=== PATIENT | male | born 1960 | race Caucasian/White ===

== ENCOUNTER 2018-05-13 07:29 | Day surgery (SDC) | payer BC ==
[2018-05-11 10:53] VITALS: BMI 25.1
[~2018-05-13 07:29] MED LIST: DEXAMETHASONE SOD PHOSPHATE 10 MG/ML 1 ML VIAL IV ONE; HYDROmorphone 1 MG/ML 1 ML SYRINGE IVP PRN; LACTATED RINGERS 1,000 ML IV SCH; LIDOCAINE 1% 20 ML VIAL (10MG/ML) FOR IV START INTRADERMA PRN; ONDANSETRON 4 MG/2 ML VIAL IVP ONE; SCOPOLAMINE 1.5MG/72HR PATCH TRANSDERM ONE
[2018-05-13 07:45] VITALS: TEMP 97.7
[2018-05-13] MEDS ORDERED: LACTATED RINGERS 1,000 ML IV ONE (07:45)
[2018-05-13 07:51] LABS: Glucose,Whole Blood 130 mg/dL (75-99)
[2018-05-13] MEDS ORDERED: PROPOFOL 10 MG/ML 20 ML VIAL IV ONE (08:15)
[2018-05-13 09:14] VITALS: BP 125/74; PULSE 84; RESP 18
--- NOTE | 2018-05-13 09:25 | P.PCN ---
Date of Procedure: 05/13/18 Description of Procedure: BRIEF HISTORY: Patient is a 58-year-old pleasant male patient with a medical history significant for hypertension, dyslipidemia and diabetes mellitus who is scheduled for an elective colonoscopy as a part of his first screening. The patient has not had a colonoscopy in the past. He does have a family history of colon cancer in his father was diagnosed at the age of approximately 60 years old. No diarrhea, change in bowel habits, constipation, hematochezia, melena or other bowel issues. PROCEDURE PERFORMED: Colonoscopy. PREOPERATIVE DIAGNOSIS: Screening for colon cancer (no family history of colon cancer). ESTIMATED BLOOD LOSS: Minimal. IV sedation per Anesthesia. PROCEDURE: After informed consent was obtained, the patient, was brought into the endoscopy unit. IV sedation was administered by Anesthesia under continuous monitoring. Digital rectal examination was normal. Initially the Olympus CF- 190 flexible video colonoscope was then inserted in the rectum, gradually advanced into the cecum without any difficulty. The terminal ileum was intubated and photographed. Careful examination was performed as the scope was gradually being withdrawn. Ileocecal valve and the appendiceal orifice were visualized and appeared normal. Prep was good. Mucosa of the cecum, ascending colon, transverse colon, descending colon, sigmoid colon, and rectum appeared normal. The patient had numerous small and large mouth diverticula in the sigmoid and descending colon. The patient also had a somewhat tortuous and fixed colon. Retroflexion was performed in the rectum and no lesions were seen , mild internal hemorrhoids noted on retroflexion. The patient tolerated the procedure well. IMPRESSION: Normal-appearing colon from rectum to cecum with only diverticulosis and internal hemorrhoids noted. RECOMMENDATIONS: Findings of this examination were discussed with the patient. Okay to resume diet. Would recommend repeat colonoscopy in 5 years given family history.[].
== END 2018-05-13 09:41 | disposition home or self-care (01) ==
LOC: ORWHC2ENDO 07:29
PROVIDERS: ATTEND Internal Medicine
DX: Z12.11 Encounter for screening for malignant neoplasm of colon (principal); K57.30 Diverticulosis of large intestine without perforation or abscess without bleeding; K64.8 Other hemorrhoids; Q43.8 Other specified congenital malformations of intestine; Z80.0 Family history of malignant neoplasm of digestive organs; I10 Essential (primary) hypertension; E11.9 Type 2 diabetes mellitus without complications; M54.5 Low back pain; F41.9 Anxiety disorder, unspecified; F17.210 Nicotine dependence, cigarettes, uncomplicated; Z79.84 Long term (current) use of oral hypoglycemic drugs; Z79.899 Other long term (current) drug therapy; Z79.891 Long term (current) use of opiate analgesic
CPT/HCPCS: J2704; G0105; 45378

== ENCOUNTER → 2018-05-20 | Outpatient (CLI) | payer BC ==
--- NOTE | 2018-05-20 18:28 | MR ---
EXAMINATION TYPE: MR lumbar spine wo con DATE OF EXAM: 05/20/2018 COMPARISON: Plane, 04/28/2018 HISTORY: Rt hip pain into rt leg TECHNIQUE: Multiplanar, multisequence images of the lumbar spine were acquired. Exam was aborted due to patient claustrophobia. Sagittal T2-weighted images show loss of disc height and signal especially at L4-5 and L5-S1. Posterior extension of endplate disc complex at L4-5 [facility] with facet arthropathy is thought to cause spinal stenosis, some redundancy of the nerve roots ar e present. Lateral extension endplate disc complexes at L4-5 and L5-S1 cause foraminal encroachment. The conus is unremarkable as seen. Possible synovial cyst at the arthropathy of the facets at L4-5 ca using mass effect locally. IMPRESSION: Degenerative disc disease, spinal stenosis, facet arthropathy. Patient to reschedule exam.
== END ==
LOC: RADMRIMAIN 06:34
PROVIDERS: ATTEND Family Medicine
DX: M51.36 Other intervertebral disc degeneration, lumbar region (principal); M48.061 Spinal stenosis, lumbar region without neurogenic claudication; M46.96 Unspecified inflammatory spondylopathy, lumbar region
CPT/HCPCS: 72148

== ENCOUNTER 2018-05-24 15:02 | Inpatient (IN) | payer BC ==
[2018-05-24] MEDS ORDERED: ASPIRIN 81 MG PO STA (15:45)
[2018-05-24] MEDS ORDERED: SODIUM CHLORIDE 0.9% 1,000 ML IV STA (15:45)
[2018-05-24] MEDS ORDERED: NITROGLYCERIN SL TABS 0.4 MG TAB SUBLINGUAL STA ×3 (15:45)
--- NOTE | 2018-05-24 15:53 | ED ---
General Adult HPI - General Chief complaint: Chest Pain Stated complaint: Chest pain Time Seen by Provider: 05/24/18 15:32 Source: patient, family, RN notes reviewed Mode of arrival: wheelchair Limitations: no limitations - History of Present Illness Initial comments: Patient is a pleasant 58-year-old male presenting to the emergency Department with complaints of chest discomfort. Onset of symptoms was earlier today. Discomfort has been waxing and waning. Patient may have had some minimal symptoms past day or 2. Discomfort feels like pressure on his chest without radiation. Discomfort is currently 8/10. Patient does have some associated dyspnea and lightheadedness. No associated nausea or diaphoresis. No history of similar symptoms previously. Patient did see his primary care physician prior to arrival and was directed to come to the emergency department - Related Data Home Medications Medication Instructions Recorded Confirmed Atorvastatin [Lipitor] 10 mg PO AC-BRKFST 05/11/18 05/24/18 metFORMIN HCL 500 mg PO AC-LUNCH 05/11/18 05/24/18 Losartan-Hctz 50-12.5 mg [Hyzaar 1 tab PO AC-SUPPER 05/24/18 05/24/18 50-12.5] Allergies Allergy/AdvReac Type Severity Reaction Status Date / Time No Known Allergies Allergy Verified 05/24/18 15:56 Review of Systems ROS Statement: Those systems with pertinent positive or pertinent negative responses have been documented in the HPI. ROS Other: All systems not noted in ROS Statement are negative. Constitutional: Denies: fever Eyes: Denies: eye pain ENT: Denies: ear pain Respiratory: Reports: dyspnea. Denies: cough Cardiovascular: Reports: chest pain Endocrine: Denies: fatigue Gastrointestinal: Denies: abdominal pain Genitourinary: Denies: dysuria Musculoskeletal: Denies: back pain Skin: Denies: rash Neurological: Denies: weakness Past Medical History Past Medical History: Diabetes Mellitus, Hyperlipidemia, Hypertension History of Any Multi-Drug Resistant Organisms: None Reported Past Surgical History: Heart Catheterization Past Anesthesia/Blood Transfusion Reactions: No Reported Reaction Past Psychological History: No Psychological Hx Reported Smoking Status: Current every day smoker Past Alcohol Use History: Daily Past Drug Use History: None Reported - Past Family History Mother Family Medical History: No Reported History General Exam Limitations: no limitations General appearance: alert, in no apparent distress Head exam: Present: atraumatic Eye exam: Present: normal appearance, PERRL ENT exam: Present: normal oropharynx Neck exam: Present: normal inspection Respiratory exam: Present: normal lung sounds bilaterally. Absent: chest wall tenderness Cardiovascular Exam: Present: regular rate, normal rhythm Expanded Peripheral pulses: 2+: Radial (R), Radial (L), Posterior Tibialis (R), Posterior Tibialis (L) GI/Abdominal exam: Present: soft. Absent: tenderness Extremities exam: Present: normal inspection. Absent: pedal edema, calf tenderness Back exam: Present: normal inspection Neurological exam: Present: alert Psychiatric exam: Present: normal affect, normal mood Skin exam: Present: normal color. Absent: rash Course Vital Signs 05/24/18 05/24/18 05/24/18 15:09 15:50 16:01 Temperature 98.2 F Pulse Rate 92 93 88 Respiratory 18 18 16 Rate Blood Pressure 148/82 135/73 142/67 O2 Sat by Pulse 99 96 98 Oximetry 05/24/18 05/24/18 05/24/18 16:06 16:12 16:34 Temperature Pulse Rate 86 88 85 Respiratory 15 15 16 Rate Blood Pressure 114/57 117/55 123/62 O2 Sat by Pulse 94 L 96 98 Oximetry EKG Findings - EKG Comments: EKG Findings:: Normal sinus rhythm at 87. ND 162. QRS 112. QT 372. QTC 447. Normal axis. Normal QRS. No acute ST change. Medical Decision Making - Medical Decision Making Patient reevaluated and resting comfortably in bed. Symptoms near resolved following nitroglycerin. Patient and family updated. Patient does admit to having some dark stools over the past week or 2. Patient states this occurred following having routine colonoscopy that was reported to him as no concerns. Case was discussed in detail with Dr. Mathis, who will admit his patient with GI consult. - Lab Data Result diagrams: 05/24/18 15:52 05/24/18 15:52 Lab Results 05/24/18 05/24/18 05/24/18 Range/Units 15:52 15:52 15:52 WBC 8.0 (3.8-10.6) k/uL RBC 2.33 L (4.30-5.90) m/uL Hgb 7.4 L D (13.0-17.5) gm/dL Hct 22.0 L (39.0-53.0) % MCV 94.3 (80.0-100.0) fL MCH 31.5 (25.0-35.0) pg MCHC 33.4 (31.0-37.0) g/dL RDW 15.6 H (11.5-15.5) % Plt Count 277 (150-450) k/uL Neutrophils % 71 % Lymphocytes % 20 % Monocytes % 5 % Eosinophils % 3 % Basophils % 1 % Neutrophils # 5.6 (1.3-7.7) k/uL Lymphocytes # 1.6 (1.0-4.8) k/uL Monocytes # 0.4 (0-1.0) k/uL Eosinophils # 0.2 (0-0.7) k/uL Basophils # 0.0 (0-0.2) k/uL PT (9.0-12.0) sec INR (<1.2) APTT (22.0-30.0) sec D-Dimer (<0.60) mg/L FEU Sodium 136 L (137-145) mmol/L Potassium 3.9 (3.5-5.1) mmol/L Chloride 104 (98-107) mmol/L Carbon Dioxide 26 (22-30) mmol/L Anion Gap 6 mmol/L BUN 18 (9-20) mg/dL Creatinine 0.86 (0.66-1.25) mg/dL Est GFR (CKD-EPI)AfAm >90 (>60 ml/min/1.73 sqM) Est GFR (CKD-EPI)NonAf >90 (>60 ml/min/1.73 sqM) Glucose 118 H (74-99) mg/dL Calcium 8.7 (8.4-10.2) mg/dL Magnesium 1.8 (1.6-2.3) mg/dL Total Bilirubin 0.2 (0.2-1.3) mg/dL AST 23 (17-59) U/L ALT 31 (21-72) U/L Alkaline Phosphatase 66 (38-126) U/L Total Creatine Kinase 136 (55-170) U/L CK-MB (CK-2) 2.3 (0.0-2.4) ng/mL CK-MB (CK-2) Rel Index 1.7 Troponin I <0.012 (0.000-0.034) ng/mL Total Protein 5.5 L (6.3-8.2) g/dL Albumin 3.2 L (3.5-5.0) g/dL 05/24/18 Range/Units 15:52 WBC (3.8-10.6) k/uL RBC (4.30-5.90) m/uL Hgb (13.0-17.5) gm/dL Hct (39.0-53.0) % MCV (80.0-100.0) fL MCH (25.0-35.0) pg MCHC (31.0-37.0) g/dL RDW (11.5-15.5) % Plt Count (150-450) k/uL Neutrophils % % Lymphocytes % % Monocytes % % Eosinophils % % Basophils % % Neutrophils # (1.3-7.7) k/uL Lymphocytes # (1.0-4.8) k/uL Monocytes # (0-1.0) k/uL Eosinophils # (0-0.7) k/uL Basophils # (0-0.2) k/uL PT 9.9 (9.0-12.0) sec INR 0.9 (<1.2) APTT 25.1 (22.0-30.0) sec D-Dimer 0.35 (<0.60) mg/L FEU Sodium (137-145) mmol/L Potassium (3.5-5.1) mmol/L Chloride (98-107) mmol/L Carbon Dioxide (22-30) mmol/L Anion Gap mmol/L BUN (9-20) mg/dL Creatinine (0.66-1.25) mg/dL Est GFR (CKD-EPI)AfAm (>60 ml/min/1.73 sqM) Est GFR (CKD-EPI)NonAf (>60 ml/min/1.73 sqM) Glucose (74-99) mg/dL Calcium (8.4-10.2) mg/dL Magnesium (1.6-2.3) mg/dL Total Bilirubin (0.2-1.3) mg/dL AST (17-59) U/L ALT (21-72) U/L Alkaline Phosphatase (38-126) U/L Total Creatine Kinase (55-170) U/L CK-MB (CK-2) (0.0-2.4) ng/mL CK-MB (CK-2) Rel Index Troponin I (0.000-0.034) ng/mL Total Protein (6.3-8.2) g/dL Albumin (3.5-5.0) g/dL - Radiology Data Radiology results: image reviewed (Chest x-ray shows no acute process) Disposition Clinical Impression: Chest pain Disposition: ADMITTED IP TO THIS HOSP Is patient prescribed a controlled substance at d/c from ED?: No Referrals: Tony Mathis MD [Primary Care Provider] - 1-2 days Decision Time: 17:54
[2018-05-24] MEDS ORDERED: NITROGLYCERIN OINT 1 INCH/GM PACKET TOPICAL STA (16:29)
[2018-05-24 16:32] LABS: Basophils % (A) 1 %; Eosinophils # (A) 0.2 k/uL (0-0.7); Eosinophils % (A) 3 %; Lymphocytes # (A) 1.6 k/uL (1.0-4.8); Lymphocytes % (A) 20 %; MCH 31.5 pg (25.0-35.0); MCHC 33.4 g/dL (31.0-37.0); MCV 94.3 fL (80.0-100.0); Mean Platelet Volume 7.4; Monocytes # (A) 0.4 k/uL (0-1.0); Monocytes % (A) 5 %; Neutrophils # (A) 5.6 k/uL (1.3-7.7); Neutrophils % (A) 71 %; Platelet Count 277 k/uL (150-450); RBC 2.33 m/uL (4.30-5.90); RDW 15.6 % (11.5-15.5)
[2018-05-24 16:33] LABS: ALT 31 U/L (21-72); AST 23 U/L (17-59); Albumin 3.2 g/dL (3.5-5.0); Alkaline Phosphatase 66 U/L (38-126); Anion Gap 6 mmol/L; Blood Urea Nitrogen 18 mg/dL (9-20); Calcium 8.7 mg/dL (8.4-10.2); Carbon Dioxide 26 mmol/L (22-30); Chloride 104 mmol/L (98-107); Glucose 118 mg/dL (74-99); HGB 7.4 gm/dL (13.0-17.5); Magnesium 1.8 mg/dL (1.6-2.3); Potassium 3.9 mmol/L (3.5-5.1); Sodium 136 mmol/L (137-145); Total Bilirubin 0.2 mg/dL (0.2-1.3); Total Protein 5.5 g/dL (6.3-8.2)
[2018-05-24 16:36] LABS: Creatine Kinase 136 U/L (55-170)
[2018-05-24 16:38] LABS: D-Dimer 0.35 mg/L FEU (<0.60); INR 0.9 (<1.2); Partial Thromboplastin Time 25.1 sec (22.0-30.0); Prothrombin Time 9.9 sec (9.0-12.0)
[2018-05-24 16:49] LABS: Creatine Kinase MB 2.3 ng/mL (0.0-2.4); Troponin I <0.012 ng/mL (0.000-0.034)
--- NOTE | 2018-05-24 17:28 | XR ---
EXAMINATION TYPE: XR chest 2V DATE OF EXAM: 05/24/2018 COMPARISON: July 19, 2014 HISTORY: Chest pain TECHNIQUE: Frontal and lateral views of the chest are obtained. FINDINGS: Heart and mediastinum are normal. Lungs are clear. Costophrenic angles are clear. There is no pleural effusion. There are chest leads. Bony thorax is intact. IMPRESSION: No active cardiopulmonary disease. Normal heart.
[2018-05-24] MEDS ORDERED: PANTOPRAZOLE 40 MG/10 ML VIAL IVP ONE (17:54)
[2018-05-24] MEDS ORDERED: NITROGLYCERIN SL TABS 0.4 MG TAB SUBLINGUAL PRN (17:55)
[2018-05-24] MEDS: PANTOPRAZOLE 40 MG/10 ML VIAL IVP SCH (22:16)
[2018-05-24 22:21] VITALS: BMI 26.5
[2018-05-24] MEDS: NITROGLYCERIN OINT 1 INCH/GM PACKET TOPICAL SCH (22:26)
[2018-05-24 22:35] LABS: Creatine Kinase 98 U/L (55-170)
[2018-05-24 22:49] LABS: Creatine Kinase MB 1.5 ng/mL (0.0-2.4); Troponin I <0.012 ng/mL (0.000-0.034)
[2018-05-25 03:44] LABS: Basophils % (A) 1 %; Eosinophils # (A) 0.2 k/uL (0-0.7); Eosinophils % (A) 4 %; HCT 21.1 % (39.0-53.0); HGB 7.1 gm/dL (13.0-17.5); Lymphocytes # (A) 1.4 k/uL (1.0-4.8); Lymphocytes % (A) 22 %; MCH 32.7 pg (25.0-35.0); MCHC 33.6 g/dL (31.0-37.0); MCV 97.2 fL (80.0-100.0); Macrocytosis Slight; Mean Platelet Volume 7.3; Monocytes # (A) 0.3 k/uL (0-1.0); Monocytes % (A) 5 %; Neutrophils # (A) 4.2 k/uL (1.3-7.7); Neutrophils % (A) 67 %; Platelet Count 274 k/uL (150-450); RBC 2.17 m/uL (4.30-5.90); RDW 15.6 % (11.5-15.5); WBC 6.3 k/uL (3.8-10.6)
[2018-05-25 03:56] LABS: Cholesterol 95 mg/dL (<200); HDL Cholesterol 29 mg/dL (40-60); LDL Cholesterol,Calculated 53 mg/dL (0-99); Triglycerides 66 mg/dL (<150)
[2018-05-25 04:24] LABS: Creatine Kinase 113 U/L (55-170)
[2018-05-25 04:37] LABS: Creatine Kinase MB 1.5 ng/mL (0.0-2.4); Troponin I <0.012 ng/mL (0.000-0.034)
[2018-05-25] MEDS: NITROGLYCERIN OINT 1 INCH/GM PACKET TOPICAL SCH ×5 (05:50→23:18)
[2018-05-25 06:25] LABS: Glucose,Whole Blood 141 mg/dL (75-99)
[2018-05-25] MEDS: PANTOPRAZOLE 40 MG/10 ML VIAL IVP SCH ×2 (08:44→20:59)
--- NOTE | 2018-05-25 11:28 | P.HPIM ---
History of Present Illness 58-year-old male presented emergency room with complaints of chest pain and black stools. Patient had a colonoscopy [address] Lozano. Patient states the day after colonoscopy developed black stools. States she developed chest pain this weekend. Patient has a history of diabetes type 2 hyperlipidemia hypertension oh called blood positive hemoglobin 7.4 initially now 7. Review of Systems Constitutional: Reports fatigue Cardiovascular: Reports chest pain Gastrointestinal: Reports hematochezia Past Medical History Past Medical History: Diabetes Mellitus, Hyperlipidemia, Hypertension History of Any Multi-Drug Resistant Organisms: None Reported Past Surgical History: Heart Catheterization Past Anesthesia/Blood Transfusion Reactions: No Reported Reaction Past Psychological History: No Psychological Hx Reported Smoking Status: Current every day smoker Past Alcohol Use History: Daily Additional Past Alcohol Use History / Comment(s): has smoked for about 45 years ; less than 1ppd Past Drug Use History: None Reported - Past Family History Mother Family Medical History: No Reported History Additional Family Medical History / Comment(s): "either a stroke or heart attack " Father Family Medical History: Cancer Additional Family Medical History / Comment(s): colon cancer Medications and Allergies Home Medications Medication Instructions Recorded Confirmed Type Atorvastatin [Lipitor] 10 mg PO AC-BRKFST 05/11/18 05/24/18 History metFORMIN HCL 500 mg PO AC-LUNCH 05/11/18 05/24/18 History Losartan-Hctz 50-12.5 mg [Hyzaar 1 tab PO AC-SUPPER 05/24/18 05/24/18 History 50-12.5] Allergies Allergy/AdvReac Type Severity Reaction Status Date / Time No Known Allergies Allergy Verified 05/24/18 15:56 Physical Exam Vitals: Vital Signs Temp Pulse Pulse Resp BP BP Pulse Ox 05/25/18 08:00 97.9 F 77 18 135/82 95 05/25/18 03:02 74 16 137/69 97 05/25/18 03:01 80 16 05/24/18 22:33 80 16 05/24/18 22:17 84 16 136/79 98 05/24/18 21:05 78 18 139/62 96 05/24/18 20:30 82 16 96 05/24/18 20:08 97.8 F 80 18 136/79 97 05/24/18 18:15 87 18 157/71 98 12/10/18 17:15 84 16 141/65 99 05/24/18 16:34 85 16 123/62 98 05/24/18 16:12 88 15 117/55 96 05/24/18 16:06 86 15 114/57 94 L 05/24/18 16:01 88 16 142/67 98 05/24/18 15:50 93 18 135/73 96 05/24/18 15:09 98.2 F 92 18 148/82 99 Intake and Output 05/24/18 05/25/18 05/25/18 22:59 06:59 14:59 Intake Total 0 480 Balance 0 480 Intake: Oral 0 480 Other: Voiding Method Toilet Toilet # Voids 2 Weight 83.915 kg - Constitutional General appearance: average body habitus - EENT Eyes: PERRLA - Neck Neck: normal ROM - Respiratory Respiratory: bilateral: CTA - Cardiovascular Rhythm: regular - Gastrointestinal General gastrointestinal: normal bowel sounds, soft - Integumentary Integumentary: normal - Neurologic Neurologic: CNII-XII intact - Psychiatric Psychiatric: A&O x's 3, appropriate affect, intact judgment & insight Results CBC & Chem 7: 05/25/18 03:32 05/24/18 15:52 Labs: Abnormal Lab Results - Last 24 Hours (Table) 05/24/18 05/24/18 05/25/18 Range/Units 15:52 15:52 03:32 RBC 2.33 L 2.17 L (4.30-5.90) m/uL Hgb 7.4 L D 7.1 L (13.0-17.5) gm/dL Hct 22.0 L 21.1 L (39.0-53.0) % RDW 15.6 H 15.6 H (11.5-15.5) % Sodium 136 L (137-145) mmol/L Glucose 118 H (74-99) mg/dL POC Glucose (mg/dL) (75-99) mg/dL Total Protein 5.5 L (6.3-8.2) g/dL Albumin 3.2 L (3.5-5.0) g/dL HDL Cholesterol (40-60) mg/dL 05/25/18 05/25/18 Range/Units 03:32 06:20 RBC (4.30-5.90) m/uL Hgb (13.0-17.5) gm/dL Hct (39.0-53.0) % RDW (11.5-15.5) % Sodium (137-145) mmol/L Glucose (74-99) mg/dL POC Glucose (mg/dL) 141 H (75-99) mg/dL Total Protein (6.3-8.2) g/dL Albumin (3.5-5.0) g/dL HDL Cholesterol 29 L (40-60) mg/dL Chest x-ray: report reviewed Assessment and Plan Plan: Assessment Chest pain troponin negative 3 GI bleed History of colonoscopy 2 weeks ago Diabetes type 2 Hypertension Hyperlipidemia Anemia secondary to blood loss Nicotine use Plan Cardiology consultation Gastroenterology consultation Dr. Lozano
--- NOTE | 2018-05-25 12:44 | ECHOF ---
Referral Reason:chest pain MEASUREMENTS -------- HEIGHT: 177.8 cm WEIGHT: 83.9 kg BP: RVIDd: 2.5 cm (< 3.3) IVSd: 1.0 cm (0.6 - 1.1) LVIDd: 5.2 cm (3.9 - 5.3) LVPWd: 1.0 cm (0.6 - 1.1) IVSs: 1.3 cm LVIDs: 3.4 cm LVPWs: 1.3 cm LAESV Index (A-L): 19.24 ml/m Ao Diam: 3.1 cm (2.0 - 3.7) AV Cusp: 2.0 cm (1.5 - 2.6) LA Diam: 3.9 cm (2.7 - 3.8) MV E Stephen: 1.06 m/s MV DecT: 259 ms MV A Stephen: 1.00 m/s MV E/A Ratio: 1.07 RAP: 5.00 mmHg RVSP: 30.89 mmHg FINDINGS -------- Sinus rhythm. This was a technically adequate study. The left ventricular size is normal. Left ventricular wall thickness is normal. Overall left vent ricular systolic function is normal with, an EF between 55 - 60 %. The right ventricle is normal in size and function. Normal LA size by volume 22+/-6 ml/m2. The right atrium is normal in size. The aortic valve is trileaflet, and appears structurally normal. No aortic stenosis or regurgitation. The mitral valve is normal. Mild mitral regurgitation is present. Mild tricuspid regurgitation present. Right ventricular systolic pressure is normal at < 35 mmHg. The right ventricular systolic pressure, as measured by Doppler, is 30.89mmHg. Trace/mild (physiologic) pulmonic regurgitation. The aortic root size is normal. Normal inferior vena cava with normal inspiratory collapse consistent with estimated right atrial pre ssure of 5 mmHg. There is no pericardial effusion. CONCLUSIONS -------- 1. Sinus rhythm. 2. This was a technically adequate study. 3. The left ventricular size is normal. 4. Left ventricular wall thickness is normal. 5. Overall left ventricular systolic function is normal with, an EF between 55 - 60 %. 6. Normal LA size by volume 22+/-6 ml/m2. 7. The aortic valve is trileaflet, and appears structurally normal. No aortic stenosis or regurgitati on. 8. Mild mitral regurgitation is present. 9. Mild tricuspid regurgitation present. 10. Right ventricular systolic pressure is normal at < 35 mmHg. 11. Trace/mild (physiologic) pulmonic regurgitation. 12. The aortic root size is normal. 13. There is no pericardial effusion. FINAL CANOE INSPECTOR: Erick Porras RDCS
[2018-05-25] MEDS: metFORMIN 500 MG TAB PO SCH (13:03)
--- NOTE | 2018-05-25 13:41 | P.CONS ---
History of Present Illness - Reason for Consult Consult date: 05/25/18 Anemia and GI bleed Requesting physician: Tony Mathis - Chief Complaint Melena and lightheadedness - History of Present Illness 58-year-old gentleman admitted with acute symptomatic anemia. Patient underwent outpatient colonoscopy screening May 13 with findings of colonic diverticulosis and internal hemorrhoids. He has a past medical history of sciatic pain and takes an Aleve daily as well as 400 mg of Motrin at night. Over the last month he has been experiencing some black or darker looking bowel movements. Over the weekend he developed increased lightheadedness dizziness weakness more sleepy fatigue. He isn't passing on an average one bowel movement a day black-colored in nature without abdominal pain or emesis fever chills or weight loss. No history of GI bleed peptic ulcer disease or EGD. Hemoglobin one month ago was 16.4. Admission hemoglobin 7.4 presently 7.1 is scheduled to receive a blood transfusion today. Last black bowel movement was yesterday. MCV 97. Platelet 274. INR 0.9. BUN 18. Creatinine 0.8. FOBT positive. Denies excessive usage of NSAIDs or aspirin. No alcohol. CT abdomen and pelvis 04/28/2018 reported moderate sigmoid diverticulosis no sign of acute abdomen and pelvis. Review of Systems Constitutional: Denies fever, chills, sweats, weight gain, or loss. Admitted with lightheadedness and dizziness. Fatigue. HEENT: Negative for migraines, blurred vision or loss, earaches, drainage, tinnitus, oral mucosal lesions, dysphagia, or odynophagia. Cardiac: Negative for chest pain, arrhythmias, or palpitation. Respiratory: Negative for shortness of breath, hemoptysis, cough, or sputum production. Gastrointestinal: See HPI for pertinent findings. Genitourinary: Negative for hematuria, urgency, frequency, polyuria, dysuria, or penile discharge. Musculoskeletal: Negative for muscle aches, swelling, arthritis, and arthralgias. Neurologic: Negative for stroke or TIA. Endocrine: Negative for thyroid problems. Skin: Negative for rash or itching. Psychiatric: Negative history for depression and anxiety Past Medical History Past Medical History: Diabetes Mellitus, Hyperlipidemia, Hypertension History of Any Multi-Drug Resistant Organisms: None Reported Past Surgical History: Heart Catheterization Past Anesthesia/Blood Transfusion Reactions: No Reported Reaction Past Psychological History: No Psychological Hx Reported Smoking Status: Current every day smoker Past Alcohol Use History: Daily Additional Past Alcohol Use History / Comment(s): has smoked for about 45 years ; less than 1ppd Past Drug Use History: None Reported - Past Family History Mother Family Medical History: No Reported History Additional Family Medical History / Comment(s): "either a stroke or heart attack " Father Family Medical History: Cancer Additional Family Medical History / Comment(s): colon cancer Medications and Allergies Home Medications Medication Instructions Recorded Confirmed Type Atorvastatin [Lipitor] 10 mg PO AC-BRKFST 05/11/18 05/24/18 History metFORMIN HCL 500 mg PO AC-LUNCH 05/11/18 05/24/18 History Losartan-Hctz 50-12.5 mg [Hyzaar 1 tab PO AC-SUPPER 05/24/18 05/24/18 History 50-12.5] Allergies Allergy/AdvReac Type Severity Reaction Status Date / Time No Known Allergies Allergy Verified 05/24/18 15:56 Physical Exam Vitals: Vital Signs Temp Pulse Pulse Resp BP BP Pulse Ox 05/25/18 08:00 97.9 F 77 18 135/82 95 05/25/18 03:02 74 16 137/69 97 05/25/18 03:01 80 16 05/24/18 22:33 80 16 05/24/18 22:17 84 16 136/79 98 05/24/18 21:05 78 18 139/62 96 05/24/18 20:30 82 16 96 05/24/18 20:08 97.8 F 80 18 136/79 97 05/24/18 18:15 87 18 157/71 98 05/24/18 17:15 84 16 141/65 99 05/24/18 16:34 85 16 123/62 98 05/24/18 16:12 88 15 117/55 96 05/24/18 16:06 86 15 114/57 94 L 05/24/18 16:01 88 16 142/67 98 05/24/18 15:50 93 18 135/73 96 05/24/18 15:09 98.2 F 92 18 148/82 99 Intake and Output 05/24/18 05/25/18 05/25/18 22:59 06:59 14:59 Intake Total 0 480 Balance 0 480 Intake: Oral 0 480 Other: Voiding Method Toilet Toilet # Voids 2 Weight 83.915 kg General appearance: The patient is alert, oriented, in no acute distress. HET: Head is normocephalic and atraumatic. Pupils are equal and reactive. Oropharynx is clear without lesions. Neck: Supple without lymphadenopathy. Trachea midline. Heart: S1 S2. Regular rate and rhythm. Lungs: No crackles or wheezes are heard. Abdomen: Soft, nontender, nondistended with bowel sounds. No peritoneal signs. No palpable organomegaly or masses. Extremities: Normal skin color and turgor. No cyanosis, rash, ulceration, clubbing, or edema. Radial and pedal pulses are 2/4 bilaterally. Neurological: No focal deficits. Strength and sensation are grossly intact. Results CBC & Chem 7: 05/25/18 03:32 05/24/18 15:52 Labs: Abnormal Lab Results - Last 24 Hours (Table) 05/24/18 05/24/18 05/25/18 Range/Units 15:52 15:52 03:32 RBC 2.33 L 2.17 L (4.30-5.90) m/uL Hgb 7.4 L D 7.1 L (13.0-17.5) gm/dL Hct 22.0 L 21.1 L (39.0-53.0) % RDW 15.6 H 15.6 H (11.5-15.5) % Sodium 136 L (137-145) mmol/L Glucose 118 H (74-99) mg/dL POC Glucose (mg/dL) (75-99) mg/dL Total Protein 5.5 L (6.3-8.2) g/dL Albumin 3.2 L (3.5-5.0) g/dL HDL Cholesterol (40-60) mg/dL 05/25/18 05/25/18 Range/Units 03:32 06:20 RBC (4.30-5.90) m/uL Hgb (13.0-17.5) gm/dL Hct (39.0-53.0) % RDW (11.5-15.5) % Sodium (137-145) mmol/L Glucose (74-99) mg/dL POC Glucose (mg/dL) 141 H (75-99) mg/dL Total Protein (6.3-8.2) g/dL Albumin (3.5-5.0) g/dL HDL Cholesterol 29 L (40-60) mg/dL Assessment and Plan (1) Symptomatic anemia Narrative/Plan: 58-year-old gentleman presented with acute symptomatic acute blood loss anemia with black colored melanotic bowel movements one month duration with chronic NSAID usage for sciatic pain. Possible peptic ulcer disease, small bowel source cannot be excluded. Colonoscopy 2 weeks ago reported colonic diverticulosis internal hemorrhoids. Current Visit: Yes Status: Acute Code(s): D64.9 - ANEMIA, UNSPECIFIED SNOMED Code(s): 630055536 (2) Acute blood loss anemia Current Visit: Yes Status: Acute Code(s): D62 - ACUTE POSTHEMORRHAGIC ANEMIA SNOMED Code(s): 483918973 (3) Colon, diverticulosis Current Visit: Yes Status: Acute Code(s): K57.30 - DVRTCLOS OF LG INT W/O PERFORATION OR ABSCESS W/O BLEEDING SNOMED Code(s): 662689676 (4) Right sided sciatica Current Visit: No Status: Acute Code(s): M54.31 - SCIATICA, RIGHT SIDE SNOMED Code(s): 51286844 Plan: 1. Protonix 40 mg IV twice daily. CBC monitoring. Blood transfusion. We'll proceed with EGD exam possiblel small bowel capsule based on endoscopic findings. The radio message router has discussed the risks, benefits and alternative therapies for the above-mentioned procedure and for both sedation/analgesia as well as necessary blood product administration, if indicated, as they pertain to this patient. The patient has indicated understanding and acceptance of the risks and procedures discussed. Thank you for this kind referral and the opportunity to participate in the care of your patient. This consultation was discussed with Dr. Lozano. The impression and plan of care have been directed as dictated.
--- NOTE | 2018-05-25 15:37 | CONS ---
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 He came to the emergency room complaining of discomfort in the chest. The quality of the discomfort seems to be on and off. He has it sometimes in a random fashion, not always related to physical exertion. It is in the midsternal/epigastric area, has no specific radiation. He smokes about a pack a day and does drink alcohol almost daily or every other day and he likes whiskey. About 3 weeks ago or so, he had a colonoscopy and a complete workup and there was no evidence of any abnormality. Prior to that, he had black tarry stool and the workup included colonoscopy, which according to the report is unremarkable. He has type 2 diabetes, hypertension, and hyperlipidemia, but no documented CAD. His stress test about 3 years ago was normal. He sees Dr. Tony Mathis on a regular basis. The quality of his discomfort in the chest seems somewhat atypical. It is more or less in the epigastric area. The pain is not related to physical activity. His troponins are normal. He is resting comfortably, but unfortunately his hemoglobin is 7.1 and this represents a significant anemia compared to a hemoglobin that was normal about 4 weeks ago. He is resting comfortably without symptoms. PAST MEDICAL HISTORY: 1. Recent episodes of GI bleed, probably upper GI with melanotic stool for which he had a colonoscopy performed that was normal. 2. Hypertension. 3. Hyperlipidemia. 4. Type 2 diabetes mellitus. 5. Smoking and possible chronic obstructive pulmonary disease. MEDICATIONS: At home include atorvastatin 10 mg daily, metformin 500 mg b.i.d., losartan HCTZ 50/12.5 one tablet daily. ALLERGIES: None. REVIEW OF SYSTEMS: Remarkable for continued melanotic stools. He has no hematemesis. He does not have any fever, chills or cough with expectoration. PHYSICAL EXAMINATION: Blood pressure is 130/70, pulse rate is about 70 per minute, regular. HEENT: Unremarkable. Fundus was not examined by me. Neck is supple. There is no JVD. I do not hear a carotid bruit. Heart exam reveals S1, S2 with a very soft systolic murmur. Lungs reveal decent air entry, bilateral lung arellano. Abdomen is soft, nontender. Lower extremities reveal normal pulses. No edema. Central nervous system is grossly within normal limits. EKG revealed sinus mechanism. There are no acute changes. LABORATORY DATA: Suggests a hemoglobin of 7.1 and MCV of 97, which is a little unusual if it is a blood loss, but this may be a chronic blood loss, renal function and electrolytes are normal, troponins are all unremarkable. IMPRESSION: 1. Epigastric lower chest pain, very atypical for angina. Patient does have significant risk factors, but his symptoms do not represent angina at this time. 2. Hypertension. 3. Hyperlipidemia. 4. Type 2 diabetes mellitus. 5. History of recent workup for a GI bleed including colonoscopy which was negative. RECOMMENDATIONS: I am recommending no intervention from a cardiac standpoint. He needs to have an upper endoscopy. Since he has a melanotic stool, I suspect if upper endoscopy was not performed that would be the optimal. I will also order an echocardiogram but no other intervention is necessary at this time for this patient from a cardiac standpoint, but once he is more stable, we will do a stress test. He does have significant risk factors for CAD, but no evidence to suggest active ongoing myocardial ischemia. Thank you very much for the consult. MMODL / IJN: [id number] /
[2018-05-25] MEDS: LOSARTAN-HCTZ 50-12.5 MG 1 EACH TAB PO SCH (17:32)
[2018-05-26] MEDS: NITROGLYCERIN OINT 1 INCH/GM PACKET TOPICAL SCH ×3 (05:22→17:47)
[2018-05-26 07:19] LABS: Basophils % (A) 1 %; Eosinophils # (A) 0.2 k/uL (0-0.7); Eosinophils % (A) 3 %; HCT 27.5 % (39.0-53.0); Lymphocytes # (A) 1.3 k/uL (1.0-4.8); Lymphocytes % (A) 22 %; MCH 30.7 pg (25.0-35.0); MCHC 33.1 g/dL (31.0-37.0); MCV 92.6 fL (80.0-100.0); Mean Platelet Volume 7.4; Monocytes # (A) 0.4 k/uL (0-1.0); Monocytes % (A) 6 %; Neutrophils % (A) 66 %; Platelet Count 301 k/uL (150-450); RBC 2.97 m/uL (4.30-5.90); RDW 15.6 % (11.5-15.5)
[2018-05-26 07:36] LABS: HGB 9.1 gm/dL (13.0-17.5)
[2018-05-26] MEDS: PANTOPRAZOLE 40 MG/10 ML VIAL IVP SCH ×2 (07:42→20:06)
[2018-05-26] MEDS: ATORVASTATIN 10 MG TAB PO SCH (07:42)
--- NOTE | 2018-05-26 10:45 | P.PN ---
Subjective Patient sitting in chair at bedside hemoglobin improved to 9.1. Baseline hemoglobin is 16.5. Patient states he feels much improved awaiting for EGD at noon today Objective - Vital Signs Vital signs: Vital Signs Temp 98.4 F 05/26/18 07:50 Pulse 77 05/26/18 07:50 Resp 20 05/26/18 07:50 BP 135/76 05/26/18 07:50 Pulse Ox 94 L 05/26/18 07:50 Intake & Output 05/25/18 05/26/18 05/26/18 18:59 06:59 18:59 Intake Total 1110 720 Balance 1110 720 Weight 78 kg Intake: Oral 800 100 Blood Product 310 620 Rc As-1 Unit 0 310 [id number] Rc Cpda-1 Unit 310 [id number] Other: Voiding Method Toilet # Voids 1 2 - Constitutional General appearance: Present: average body habitus - EENT Eyes: Present: PERRLA Ears: bilateral: normal - Neck Neck: Present: normal ROM - Respiratory Respiratory: bilateral: CTA - Cardiovascular Rhythm: regular - Gastrointestinal General gastrointestinal: Present: normal bowel sounds, soft - Integumentary Integumentary: Present: normal - Neurologic Neurologic: Present: CNII-XII intact - Musculoskeletal Musculoskeletal: Present: gait normal - Psychiatric Psychiatric: Present: A&O x's 3, appropriate affect, intact judgment & insight - Labs CBC & Chem 7: 05/26/18 06:41 05/24/18 15:52 Labs: Abnormal Lab Results - Last 24 Hours (Table) 05/25/18 05/26/18 Range/Units 12:14 06:41 RBC 2.97 L (4.30-5.90) m/uL Hgb 9.1 L D (13.0-17.5) gm/dL Hct 27.5 L (39.0-53.0) % RDW 15.6 H (11.5-15.5) % Crossmatch See Detail Assessment and Plan Plan: Assessment Chest pain atypical troponins negative 3 Positive occult blood Anemia acute blood loss baseline hemoglobin 16.5 Nicotine use Diabetes type 2 Hypertension Hyperlipidemia Plan Continue consultation with gastroenterology EGD planned for today at noon
[2018-05-26] MEDS ORDERED: PROPOFOL 10 MG/ML 20 ML VIAL IV ONE (12:39)
[2018-05-26] MEDS ORDERED: GLYCOPYRROLATE 0.2 MG/ML 2 ML VIAL ONE (12:39)
[2018-05-26] MEDS ORDERED: LIDOCAINE 1% INJ 10MG/ML (20 ML MDV) ONE (12:39)
[2018-05-26] MEDS ORDERED: LACTATED RINGERS 1,000 ML IV ONE (12:48)
[2018-05-26] MEDS: metFORMIN 500 MG TAB PO SCH (13:24)
--- NOTE | 2018-05-26 15:19 | P.PCN ---
Date of Procedure: 05/26/18 Description of Procedure: BRIEF HISTORY: 58-year-old gentleman admitted with acute symptomatic anemia. Patient underwent outpatient colonoscopy screening May 13 with findings of colonic diverticulosis and internal hemorrhoids. He has a past medical history of sciatic pain and takes an Aleve daily as well as 400 mg of Motrin at night. Over the last month he has been experiencing some black or darker looking bowel movements. Over the weekend he developed increased lightheadedness dizziness weakness more sleepy fatigue. He isn't passing on an average one bowel movement a day black-colored in nature without abdominal pain or emesis fever chills or weight loss. No history of GI bleed peptic ulcer disease or EGD. Hemoglobin one month ago was 16.4. Admission hemoglobin 7.4 presently 7.1 is scheduled to receive a blood transfusion today. Last black bowel movement was yesterday. PROCEDURE PERFORMED: Esophagogastroduodenoscopy with biopsy. PREOPERATIVE DIAGNOSIS: Anemia of acute blood loss, melena. ESTIMATED BLOOD LOSS: Minimal. IV sedation per anesthesia. PROCEDURE: After informed consent was obtained, the patient was brought into the endoscopy unit. IV sedation was administered by Anesthesia under continuous monitoring. Initially the Olympus GIF-190 video endoscope was inserted into the mouth. Esophagus intubated without any difficulty. It was gradually advanced into the stomach and duodenum and carefully examined. The bulb and the second part of the duodenum appeared were significant for scattered erythema suggestive of duodenitis, biopsied. The scope at this time was withdrawn to the stomach, adequately insufflated with air, and upon careful examination, mucosa of the antrum, body, cardia and the fundus revealed a nonbleeding antral ulcer which was biopsied. Moderate erythema and nodularity of the antrum and body suggestive of gastritis were also noted and biopsied. The scope was then withdrawn into the esophagus. The GE junction was located at 38 cm from the incisors. The esophagus appeared normal. There were no erosions or ulcerations seen and the patient tolerated the procedure well. IMPRESSION: 1. Duodenitis, biopsied moderate gastritis, biopsied and nonbleeding antral ulcer, biopsied. RECOMMENDATIONS: The findings of this examination were discussed with the patient, his son and daughter. Await pathology. Continue twice daily Protonix 40 mg. Avoid NSAID medications. Follow up with GI in the outpatient setting for scheduling of repeat EGD to ensure ulcer healing.
--- NOTE | 2018-05-26 17:17 | P.DS ---
Providers Date of admission: 05/24/18 17:55 Expected date of discharge: 05/26/18 Attending physician: Tony Mathis Consults: 05/24/18 17:55 Consult Physician Urgent Consulting Provider: Ian Russell Consult Reason/Comments: cp Do you want consulting provider notified?: Yes Consult Physician Urgent Consulting Provider: Brody Lozano Consult Reason/Comments: anemia, eval for gi hemorrhage Do you want consulting provider notified?: Yes Primary care physician: Tony Mathis Hospital Course: 58-year-old male was admitted to the emergency room with complaints of chest pain dyspnea and lightheadedness. Patient had a colonoscopy two weeks earlier that was negative. Patient was found anemic with a hemoglobin of's 7.4 baseline is 16.5. Patient was transfuse with two units of blood. Patient was evaluated for cardiology for chest pain found to be atypical chest pain. Patient was evaluated by gastroenterology had EGD that showed gastric ulcer that was not bleeding. Patient said no further black stools. Hemoglobin improved a 9.1 post transfusion. Patient is to follow up outpatient with gastroenterology for repeat EGD patient will be started on Protonix Assessment chest pain atypical cleared by cardiology troponins negative times three anemia acute blood loss secondary to gastric ulcer diabetes type II hypertension hyperlipidemia nicotine use Plan patient to be started protonix 40mg BID will continue medication patient is discontinue any NSaidp Patient Condition at Discharge: Stable Plan - Discharge Summary Discharge Rx Participant: No New Discharge Prescriptions: New Pantoprazole [Protonix] 40 mg PO AC-BID 30 Days #60 tablet. Continue Atorvastatin [Lipitor] 10 mg PO AC-BRKFST metFORMIN HCL 500 mg PO AC-LUNCH Losartan-Hctz 50-12.5 mg [Hyzaar 50-12.5] 1 tab PO AC-SUPPER Discharge Medication List Atorvastatin [Lipitor] 10 mg PO AC-BRKFST 05/11/18 [History] metFORMIN HCL 500 mg PO AC-LUNCH 05/11/18 [History] Losartan-Hctz 50-12.5 mg [Hyzaar 50-12.5] 1 tab PO AC-SUPPER 05/24/18 [History] Pantoprazole [Protonix] 40 mg PO AC-BID 30 Days #60 tablet. 05/26/18 [Rx] Follow up Appointment(s)/Referral(s): Tony Mathis MD [Primary Care Provider] - 06/03/18 11:10 am () Brody Lozano MD [STAFF PHYSICIAN] - 1 Week (Office is closed. Please call to schedule appointment) Patient Instructions/Handouts: Peptic Ulcer (DC), Gastritis (DC) Discharge Disposition: HOME SELF-CARE
[2018-05-26] MEDS: LOSARTAN-HCTZ 50-12.5 MG 1 EACH TAB PO SCH (17:47)
--- NOTE | 2018-05-26 21:32 | PN ---
PROGRESS NOTE HISTORY: Mr. Grey was seen by me yesterday. He had atypical chest pain. Troponins were negative. LV function is normal by echo. I really suspect that he has either peptic ulcer disease or esophagitis which is the cause of his significant GI bleeding with a drop of hemoglobin, dropped to 7.1. I suggested to the patient that after the endoscopy today, when his hemoglobin is more than 10.0, we can do a stress test as an outpatient. No intervention necessary at this time. PHYSICAL EXAM: Vitals are stable. S1 and S2 heard normally. Lungs are clear. Abdomen and lower extremity exam unchanged. PLAN: I will see this patient as needed during his hospitalization. Thank you very much for the consult. MMODL / IJN: [id number] /
[2018-05-27] MEDS: NITROGLYCERIN OINT 1 INCH/GM PACKET TOPICAL SCH ×2 (00:34→05:38)
[2018-05-27 03:17] VITALS: BP 155/81; PULSE 75; RESP 18; TEMP 98
[2018-05-27] MEDS: ATORVASTATIN 10 MG TAB PO SCH (06:39)
[2018-05-27 06:51] LABS: Hypochromasia Slight; MCH 31.6 pg (25.0-35.0); MCHC 33.4 g/dL (31.0-37.0); MCV 94.6 fL (80.0-100.0); Mean Platelet Volume 7.6; Platelet Count 345 k/uL (150-450); RBC 3.17 m/uL (4.30-5.90); WBC 8.9 k/uL (3.8-10.6)
== END 2018-05-27 08:01 | disposition home or self-care (01) | DRG 378 ==
LOC: EC 15:02 → 3SCARD 17:55
PROVIDERS: ADMIT Family Medicine; ATTEND Family Medicine
PROC: 30233N1 Transfusion of Nonautologous Red Blood Cells into Peripheral Vein, Percutaneous Approach (ICD-10-PCS; 2018-05-25)
PROC: 0DB78ZX Excision of Stomach, Pylorus, Via Natural or Artificial Opening Endoscopic, Diagnostic (ICD-10-PCS; 2018-05-26)
PROC: 0DB98ZX Excision of Duodenum, Via Natural or Artificial Opening Endoscopic, Diagnostic (ICD-10-PCS; principal; 2018-05-26 07:30)
DX: K25.4 Chronic or unspecified gastric ulcer with hemorrhage (principal); D62 Acute posthemorrhagic anemia; K29.70 Gastritis, unspecified, without bleeding; E11.9 Type 2 diabetes mellitus without complications; Z79.84 Long term (current) use of oral hypoglycemic drugs; E78.5 Hyperlipidemia, unspecified; F17.210 Nicotine dependence, cigarettes, uncomplicated; I10 Essential (primary) hypertension; K29.80 Duodenitis without bleeding; K57.30 Diverticulosis of large intestine without perforation or abscess without bleeding; K64.8 Other hemorrhoids; M54.31 Sciatica, right side; Z80.0 Family history of malignant neoplasm of digestive organs; Z82.3 Family history of stroke; Z82.49 Family history of ischemic heart disease and other diseases of the circulatory system; Z79.899 Other long term (current) drug therapy; R07.9 Chest pain, unspecified
CPT/HCPCS: 36415; 43239; 71046; 80053; 80061; 82272; 82550; 82553; 83735; 84484; 85025; 85027; 85379; 85610; 85730; 86850; 86900; 86901; 86920; 88305; 93005; 93306

== ENCOUNTER → 2018-10-22 | Outpatient (CLI) | payer BC ==
[2018-10-22 08:34] LABS: Basophils # (A) 0.1 k/uL (0-0.2); Basophils % (A) 1 %; Eosinophils # (A) 0.3 k/uL (0-0.7); Eosinophils % (A) 4 %; HCT 48.3 % (39.0-53.0); HGB 16.1 gm/dL (13.0-17.5); Lymphocytes # (A) 1.5 k/uL (1.0-4.8); Lymphocytes % (A) 22 %; MCH 29.2 pg (25.0-35.0); MCHC 33.2 g/dL (31.0-37.0); MCV 87.8 fL (80.0-100.0); Mean Platelet Volume 7.9; Monocytes # (A) 0.3 k/uL (0-1.0); Monocytes % (A) 4 %; Neutrophils # (A) 4.8 k/uL (1.3-7.7); Neutrophils % (A) 68 %; Platelet Count 215 k/uL (150-450); RDW 15.1 % (11.5-15.5); WBC 7.1 k/uL (3.8-10.6)
[2018-10-22 16:43] LABS: Albumin 4.4 g/dL (3.80-4.90); Calcium 9.1 mg/dL (8.7-10.3); Globulin 2.2 g/dL (1.6-3.3); Potassium 4.3 mmol/L (3.5-5.5); Total Bilirubin 0.8 mg/dL (0.2-1.2); Total Protein 6.6 g/dL (6.2-8.2)
[2018-10-22 19:59] LABS: Hemoglobin A1C 6.9 % (4.0-6.0)
== END | disposition home or self-care (01) ==
LOC: LABWHC1 07:38
PROVIDERS: ATTEND Midwife
DX: E11.9 Type 2 diabetes mellitus without complications (principal)
CPT/HCPCS: 36415; 80053; 83036; 85025

== ENCOUNTER → 2019-02-09 | Outpatient (CLI) | payer BC ==
[2019-02-09 07:05] LABS: Basophils # (A) 0.1 k/uL (0-0.2); Basophils % (A) 1 %; Eosinophils # (A) 0.3 k/uL (0-0.7); Eosinophils % (A) 4 %; HCT 50.3 % (39.0-53.0); HGB 16.5 gm/dL (13.0-17.5); Lymphocytes # (A) 1.5 k/uL (1.0-4.8); Lymphocytes % (A) 23 %; MCH 30.9 pg (25.0-35.0); MCHC 32.8 g/dL (31.0-37.0); MCV 94.2 fL (80.0-100.0); Mean Platelet Volume 7.6; Monocytes # (A) 0.5 k/uL (0-1.0); Monocytes % (A) 7 %; Neutrophils % (A) 61 %; Platelet Count 222 k/uL (150-450); RBC 5.33 m/uL (4.30-5.90); RDW 12.5 % (11.5-15.5); WBC 6.5 k/uL (3.8-10.6)
[2019-02-09 12:18] LABS: African American GFR (CKD) 107.2 (60.0-200.0); Albumin 4.6 g/dL (3.80-4.90); Albumin/Globulin Ratio 2.3 (1.60-3.17); Anion Gap 6.2 mmol/L (4.00-12.00); BUN/Creat Ratio 16.67 Ratio (12.00-20.00); Calcium 9.5 mg/dL (8.7-10.3); Carbon Dioxide 27.8 mmol/L (21.6-31.8); Chol/HDL Ratio 2.54; Potassium 4.4 mmol/L (3.5-5.5); Total Bilirubin 0.5 mg/dL (0.2-1.2); Total Protein 6.6 g/dL (6.2-8.2)
== END | disposition home or self-care (01) ==
LOC: LABWHC1 06:31
PROVIDERS: ATTEND Physician Assistant
DX: E11.9 Type 2 diabetes mellitus without complications (principal)
CPT/HCPCS: 36415; 80053; 80061; 83036; 85025

== ENCOUNTER → 2019-05-19 | Outpatient (CLI) | payer BC ==
[2019-05-19 07:12] LABS: Basophils # (A) 0.1 k/uL (0-0.2); Basophils % (A) 1 %; Eosinophils # (A) 0.3 k/uL (0-0.7); Eosinophils % (A) 4 %; HCT 48.7 % (39.0-53.0); HGB 17.1 gm/dL (13.0-17.5); Lymphocytes # (A) 1.6 k/uL (1.0-4.8); Lymphocytes % (A) 23 %; MCH 32.4 pg (25.0-35.0); MCHC 35.1 g/dL (31.0-37.0); MCV 92.4 fL (80.0-100.0); Mean Platelet Volume 6.8; Monocytes # (A) 0.4 k/uL (0-1.0); Monocytes % (A) 5 %; Neutrophils # (A) 4.3 k/uL (1.3-7.7); Neutrophils % (A) 65 %; Platelet Count 216 k/uL (150-450); RBC 5.28 m/uL (4.30-5.90); RDW 12.2 % (11.5-15.5); WBC 6.7 k/uL (3.8-10.6)
[2019-05-19 14:21] LABS: African American GFR (CKD) 106.5 (60.0-200.0); Albumin 4.5 g/dL (3.80-4.90); Albumin/Globulin Ratio 2.14 (1.60-3.17); Anion Gap 8.7 mmol/L (4.00-12.00); Calcium 9.7 mg/dL (8.7-10.3); Carbon Dioxide 25.3 mmol/L (21.6-31.8); Chol/HDL Ratio 2.86; Globulin 2.1 g/dL (1.6-3.3); LDL Cholesterol,Calculated 82.6 mg/dL (0.0-131.0); Non-African American GFR(CKD) 91.9 (60.0-200.0); Potassium 4.2 mmol/L (3.5-5.5); Total Protein 6.6 g/dL (6.2-8.2); VLDL Calculation 12.4 mg/dL (5.00-40.00)
[2019-05-19 17:38] LABS: Hemoglobin A1C 6.3 % (4.0-6.0)
== END | disposition home or self-care (01) ==
LOC: LABWHC1 06:36
PROVIDERS: ATTEND Family Medicine
DX: E11.9 Type 2 diabetes mellitus without complications (principal); Z12.5 Encounter for screening for malignant neoplasm of prostate
CPT/HCPCS: 36415; 80053; 80061; 83036; 84153; 84439; 84443; 85025

== ENCOUNTER → 2019-11-18 | Outpatient (CLI) | payer BC ==
[2019-11-18 08:46] LABS: Basophils # (A) 0.1 k/uL (0-0.2); Basophils % (A) 1 %; Eosinophils # (A) 0.3 k/uL (0-0.7); Eosinophils % (A) 5 %; HGB 17.2 gm/dL (13.0-17.5); Lymphocytes # (A) 1.5 k/uL (1.0-4.8); Lymphocytes % (A) 28 %; MCH 31.2 pg (25.0-35.0); MCHC 33.1 g/dL (31.0-37.0); MCV 94.4 fL (80.0-100.0); Monocytes # (A) 0.3 k/uL (0-1.0); Monocytes % (A) 7 %; Neutrophils % (A) 56 %; Platelet Count 226 k/uL (150-450); RBC 5.51 m/uL (4.30-5.90); RDW 12.1 % (11.5-15.5); WBC 5.3 k/uL (3.8-10.6)
[2019-11-18 16:12] LABS: African American GFR (CKD) 93.7 (60.0-200.0); Albumin 4.9 g/dL (3.80-4.90); Albumin/Globulin Ratio 2.23 (1.60-3.17); Anion Gap 11.9 mmol/L (4.00-12.00); Calcium 9.6 mg/dL (8.7-10.3); Carbon Dioxide 24.1 mmol/L (21.6-31.8); Chol/HDL Ratio 2.67; Globulin 2.2 g/dL (1.6-3.3); LDL Cholesterol,Calculated 83.2 mg/dL (0.0-131.0); Non-African American GFR(CKD) 80.9 (60.0-200.0); Potassium 4.2 mmol/L (3.5-5.5); Total Bilirubin 1.1 mg/dL (0.2-1.2); Total Protein 7.1 g/dL (6.2-8.2); VLDL Calculation 16.8 mg/dL (5.00-40.00)
== END | disposition home or self-care (01) ==
LOC: LABWHC1 08:16
PROVIDERS: ATTEND Family Medicine
DX: E11.9 Type 2 diabetes mellitus without complications (principal)
CPT/HCPCS: 36415; 80053; 80061; 83036; 85025

== ENCOUNTER → 2020-02-08 | Outpatient (CLI) | payer BC ==
[2020-02-08 17:07] LABS: Hemoglobin A1C 5.9 % (4.0-6.0)
== END | disposition home or self-care (01) ==
LOC: LABWHC1 07:07
PROVIDERS: ATTEND Family Medicine
DX: E11.9 Type 2 diabetes mellitus without complications (principal)
CPT/HCPCS: 36415; 83036

== ENCOUNTER → 2020-05-04 | Outpatient (CLI) | payer BC ==
[2020-05-04 08:30] LABS: Basophils # (A) 0.1 k/uL (0-0.2); Basophils % (A) 2 %; Eosinophils # (A) 0.2 k/uL (0-0.7); Eosinophils % (A) 4 %; HCT 50.4 % (39.0-53.0); Lymphocytes # (A) 1.4 k/uL (1.0-4.8); Lymphocytes % (A) 23 %; MCH 32.1 pg (25.0-35.0); MCHC 33.8 g/dL (31.0-37.0); MCV 94.8 fL (80.0-100.0); Mean Platelet Volume 8.2; Monocytes # (A) 0.4 k/uL (0-1.0); Monocytes % (A) 6 %; Neutrophils # (A) 3.8 k/uL (1.3-7.7); Neutrophils % (A) 63 %; Platelet Count 213 k/uL (150-450); RBC 5.32 m/uL (4.30-5.90); RDW 11.6 % (11.5-15.5); WBC 6.1 k/uL (3.8-10.6)
[2020-05-04 15:14] LABS: African American GFR (CKD) 105.7 (60.0-200.0); Albumin 4.7 g/dL (3.80-4.90); Albumin/Globulin Ratio 2.14 (1.60-3.17); Anion Gap 9.6 mmol/L (4.00-12.00); Calcium 9.7 mg/dL (8.7-10.3); Carbon Dioxide 26.4 mmol/L (21.6-31.8); Chol/HDL Ratio 2.5; Globulin 2.2 g/dL (1.6-3.3); LDL Cholesterol,Calculated 66.8 mg/dL (0.0-131.0); Non-African American GFR(CKD) 91.2 (60.0-200.0); Potassium 4.2 mmol/L (3.5-5.5); Total Bilirubin 0.9 mg/dL (0.3-1.2); Total Protein 6.9 g/dL (6.2-8.2); VLDL Calculation 17.2 mg/dL (5.00-40.00)
[2020-05-04 15:21] LABS: PSA Annual Screen 1.4 ng/mL (0.0-4.0)
[2020-05-04 18:43] LABS: Hemoglobin A1C 6.2 % (4.0-6.0)
== END | disposition home or self-care (01) ==
LOC: LABWHC1 07:24
PROVIDERS: ATTEND Nurse Practitioner
DX: E11.9 Type 2 diabetes mellitus without complications (principal); E78.5 Hyperlipidemia, unspecified; Z12.5 Encounter for screening for malignant neoplasm of prostate
CPT/HCPCS: 80061; 80053; 84443; 85025; 83036; 36415; G0103

== ENCOUNTER → 2020-08-15 | Outpatient (CLI) | payer BC ==
[2020-08-15 10:35] LABS: Basophils # (A) 0.07 X 10*3/uL (0.00-0.10); Basophils % (A) 0.9 %; Eosinophils # (A) 0.21 X 10*3/uL (0.04-0.35); Eosinophils % (A) 2.8 %; HGB 16.5 g/dL (13.0-17.0); Lymphocytes # (A) 1.76 X 10*3/uL (0.90-5.00); Lymphocytes % (A) 23.1 %; MCH 32.1 pg (27.0-32.0); MCHC 34.4 g/dL (32.0-37.0); MCV 93.4 fL (80.0-97.0); Mean Platelet Volume 11.4 fL (9.5-12.2); Monocytes # (A) 0.57 X 10*3/uL (0.20-1.00); Monocytes % (A) 7.5 %; Neutrophils # (A) 4.98 X 10*3/uL (1.80-7.70); Neutrophils % (A) 65.3 %; Platelet Count 222 X 10*3/uL (140-440); RBC 5.14 X 10*6/uL (4.40-5.60); RDW 11.8 % (11.5-14.5); WBC 7.62 X 10*3/uL (4.50-10.00)
== END | disposition home or self-care (01) ==
LOC: LABWHC1 07:04
PROVIDERS: ATTEND Nurse Practitioner Family
DX: E11.9 Type 2 diabetes mellitus without complications (principal)
CPT/HCPCS: 36415; 80053; 80061; 83036; 85025

== ENCOUNTER → 2020-08-20 | Outpatient (CLI) | payer BC ==
[2020-08-20 10:58] LABS: African American GFR (CKD) 105.7 (60.0-200.0); Albumin 4.8 g/dL (3.80-4.90); Albumin/Globulin Ratio 2.4 (1.60-3.17); Anion Gap 5.4 mmol/L (4.00-12.00); BUN/Creat Ratio 15.56 Ratio (12.00-20.00); Calcium 9.8 mg/dL (8.7-10.3); Carbon Dioxide 29.6 mmol/L (21.6-31.8); Chol/HDL Ratio 2.54; Non-African American GFR(CKD) 91.2 (60.0-200.0); Potassium 4.1 mmol/L (3.5-5.5); Total Protein 6.8 g/dL (6.2-8.2)
== END | disposition home or self-care (01) ==
LOC: LABWHC1 07:15
PROVIDERS: ATTEND Nurse Practitioner
DX: E11.9 Type 2 diabetes mellitus without complications (principal)
CPT/HCPCS: 36415; 80053; 80061

== ENCOUNTER → 2020-11-01 | Outpatient (CLI) | payer BC ==
[2020-11-01 11:19] LABS: Basophils # (A) 0.04 X 10*3/uL (0.00-0.10); Basophils % (A) 0.7 %; Eosinophils # (A) 0.27 X 10*3/uL (0.04-0.35); HCT 49.8 % (39.6-50.0); HGB 16.6 g/dL (13.0-17.0); Lymphocytes # (A) 1.49 X 10*3/uL (0.90-5.00); Lymphocytes % (A) 27.5 %; MCH 30.7 pg (27.0-32.0); MCHC 33.3 g/dL (32.0-37.0); MCV 92.1 fL (80.0-97.0); Mean Platelet Volume 11.1 fL (9.5-12.2); Monocytes # (A) 0.52 X 10*3/uL (0.20-1.00); Monocytes % (A) 9.6 %; Neutrophils # (A) 3.07 X 10*3/uL (1.80-7.70); Neutrophils % (A) 56.8 %; Platelet Count 236 X 10*3/uL (140-440); RBC 5.41 X 10*6/uL (4.40-5.60); RDW 12.1 % (11.5-14.5); WBC 5.41 X 10*3/uL (4.50-10.00)
[2020-11-01 14:06] LABS: Albumin 4.6 g/dL (3.80-4.90); Albumin/Globulin Ratio 2.09 (1.60-3.17); BUN/Creat Ratio 16.25 Ratio (12.00-20.00); Calcium 9.8 mg/dL (8.7-10.3); Chol/HDL Ratio 2.78; Globulin 2.2 g/dL (1.6-3.3); LDL Cholesterol,Calculated 78.6 mg/dL (0.0-131.0); Non-African American GFR(CKD) 95.7 (60.0-200.0); Potassium 4.2 mmol/L (3.5-5.5); Total Bilirubin 0.9 mg/dL (0.3-1.2); Total Protein 6.8 g/dL (6.2-8.2); VLDL Calculation 12.4 mg/dL (5.00-40.00)
[2020-11-01 18:57] LABS: Hemoglobin A1C 6.2 % (4.0-6.0)
== END | disposition home or self-care (01) ==
LOC: LABWHC1 06:59
PROVIDERS: ATTEND Nurse Practitioner
DX: E11.9 Type 2 diabetes mellitus without complications (principal)
CPT/HCPCS: 36415; 80053; 80061; 83036; 85025

== ENCOUNTER → 2021-02-12 | Outpatient (CLI) | payer BC ==
[2021-02-12 11:07] LABS: Basophils # (A) 0.07 X 10*3/uL (0.00-0.10); Eosinophils # (A) 0.21 X 10*3/uL (0.04-0.35); Eosinophils % (A) 3.1 %; HCT 49.9 % (39.6-50.0); Lymphocytes # (A) 1.45 X 10*3/uL (0.90-5.00); Lymphocytes % (A) 21.3 %; MCH 31.5 pg (27.0-32.0); MCHC 34.1 g/dL (32.0-37.0); MCV 92.4 fL (80.0-97.0); Mean Platelet Volume 10.8 fL (9.5-12.2); Monocytes # (A) 0.71 X 10*3/uL (0.20-1.00); Monocytes % (A) 10.4 %; Neutrophils # (A) 4.34 X 10*3/uL (1.80-7.70); Neutrophils % (A) 63.9 %; Platelet Count 257 X 10*3/uL (140-440)
[2021-02-12 13:29] LABS: Hemoglobin A1C 5.6 % (4.0-6.0)
[2021-02-12 13:47] LABS: Albumin 4.7 g/dL (3.80-4.90); Albumin/Globulin Ratio 1.88 (1.60-3.17); Anion Gap 9.7 mmol/L (4.00-12.00); BUN/Creat Ratio 18.75 Ratio (12.00-20.00); Calcium 9.6 mg/dL (8.7-10.3); Carbon Dioxide 24.3 mmol/L (21.6-31.8); Chol/HDL Ratio 2.62; Globulin 2.5 g/dL (1.6-3.3); LDL Cholesterol,Calculated 77.6 mg/dL (0.0-131.0); Non-African American GFR(CKD) 95.7 (60.0-200.0); Potassium 4.5 mmol/L (3.5-5.5); Total Bilirubin 0.7 mg/dL (0.2-1.2); Total Protein 7.2 g/dL (6.2-8.2); VLDL Calculation 11.4 mg/dL (5.00-40.00)
== END | disposition home or self-care (01) ==
LOC: LABWHC1 06:57
PROVIDERS: ATTEND Nurse Practitioner
DX: E11.9 Type 2 diabetes mellitus without complications (principal)
CPT/HCPCS: 36415; 80053; 80061; 83036; 85025

== ENCOUNTER → 2021-05-15 | Outpatient (CLI) | payer BC ==
[2021-05-15 11:47] LABS: Basophils % (A) 1.7 %; Eosinophils # (A) 0.24 X 10*3/uL (0.04-0.35); Eosinophils % (A) 4.1 %; HGB 16.9 g/dL (13.0-17.0); Lymphocytes # (A) 1.44 X 10*3/uL (0.90-5.00); Lymphocytes % (A) 24.6 %; MCH 31.6 pg (27.0-32.0); MCHC 34.5 g/dL (32.0-37.0); MCV 91.6 fL (80.0-97.0); Mean Platelet Volume 11.4 fL (9.5-12.2); Monocytes # (A) 0.54 X 10*3/uL (0.20-1.00); Monocytes % (A) 9.2 %; Neutrophils # (A) 3.51 X 10*3/uL (1.80-7.70); Neutrophils % (A) 59.9 %; Platelet Count 222 X 10*3/uL (140-440); RBC 5.35 X 10*6/uL (4.40-5.60); RDW 12.3 % (11.5-14.5); WBC 5.86 X 10*3/uL (4.50-10.00)
[2021-05-15 12:05] LABS: Albumin 4.9 g/dL (3.8-4.9); Albumin/Globulin Ratio 2.13 (1.60-3.17); Anion Gap 14.8 mmol/L (10.00-18.00); BUN/Creat Ratio 14.11 Ratio (12.00-20.00); Blood Urea Nitrogen 12.7 mg/dL (9.0-27.0); Carbon Dioxide 23.2 mmol/L (20.0-27.5); Chol/HDL Ratio 2.25 Ratio; Globulin 2.3 g/dL (1.6-3.3); HDL Cholesterol 70.1 mg/dL (40.00-60.00); LDL Cholesterol,Calculated 79.1 mg/dL (0.0-131.0); Non-African American GFR(CKD) 90.6 (60.0-200.0); Potassium 4.2 mmol/L (3.5-5.5); Prostate Specific Antigen 1.2 ng/mL (0.00-4.50); T4, Free (Free Thyroxine) 1.13 ng/dL (0.800-1.800); Total Bilirubin 0.6 mg/dL (0.30-1.20); Total Protein 7.2 g/dL (6.2-8.2); Triglycerides 44.1 mg/dL (0.00-149.00); VLDL Calculation 8.82 mg/dL (5.00-40.00)
[2021-05-15 12:17] LABS: LDL Cholesterol,Direct Reflex 81.6 mg/dL (0.00-129.00)
== END | disposition home or self-care (01) ==
LOC: LABWHC1 07:12
PROVIDERS: ATTEND Family Medicine
DX: Z00.00 Encounter for general adult medical examination without abnormal findings (principal); Z12.5 Encounter for screening for malignant neoplasm of prostate; E11.9 Type 2 diabetes mellitus without complications
CPT/HCPCS: 36415; 80053; 80061; 83036; 83721; 84153; 84439; 84443; 85025

== ENCOUNTER → 2021-08-15 | Outpatient (CLI) | payer BC ==
[2021-08-15 10:42] LABS: ALT 58 U/L (10-49); AST 39 U/L (14-35); African American GFR (CKD) 110.2 (60.0-200.0); Albumin/Globulin Ratio 1.85 (1.60-3.17); Alkaline Phosphatase 89 U/L (41-126); Blood Urea Nitrogen 10.4 mg/dL (9.0-27.0); Calcium 10.2 mg/dL (8.7-10.3); Chloride 100 mmol/L (96-109); Chol/HDL Ratio 2.77 Ratio; Globulin 2.7 g/dL (1.6-3.3); Glucose 124 mg/dL (70-110); LDL Cholesterol,Calculated 91.5 mg/dL (0.0-131.0); Non-African American GFR(CKD) 95.1 (60.0-200.0); Potassium 4.3 mmol/L (3.5-5.5); Sodium 136 mmol/L (135-145); Total Protein 7.7 g/dL (6.2-8.2); VLDL Calculation 12.08 mg/dL (5.00-40.00)
[2021-08-15 11:52] LABS: Basophils # (A) 0.07 X 10*3/uL (0.00-0.10); Basophils % (A) 1.2 %; Eosinophils # (A) 0.23 X 10*3/uL (0.04-0.35); Eosinophils % (A) 3.8 %; HCT 50.3 % (39.6-50.0); HGB 17.1 g/dL (13.0-17.0); Immature Grans, Automated 0.5 %; Lymphocytes # (A) 1.54 X 10*3/uL (0.90-5.00); Lymphocytes % (A) 25.7 %; MCH 31.5 pg (27.0-32.0); MCV 92.6 fL (80.0-97.0); Mean Platelet Volume 11.4 fL (9.5-12.2); Monocytes # (A) 0.67 X 10*3/uL (0.20-1.00); Monocytes % (A) 11.2 %; NRBC Per 100 WBC 0 /100 WBCS (0.0-0.0); Neutrophils # (A) 3.45 X 10*3/uL (1.80-7.70); Neutrophils % (A) 57.6 %; Platelet Count 252 X 10*3/uL (140-440); RBC 5.43 X 10*6/uL (4.40-5.60); RDW 12.1 % (11.5-14.5); WBC 5.99 X 10*3/uL (4.50-10.00)
== END | disposition home or self-care (01) ==
LOC: LABWHC1 07:07
PROVIDERS: ATTEND Nurse Practitioner Family
DX: E11.9 Type 2 diabetes mellitus without complications (principal)
CPT/HCPCS: 36415; 80053; 80061; 83036; 85025

== ENCOUNTER → 2021-11-05 | Outpatient (CLI) | payer BC ==
[2021-11-05 14:25] LABS: Basophils # (A) 0.07 X 10*3/uL (0.00-0.10); Eosinophils # (A) 0.27 X 10*3/uL (0.04-0.35); Eosinophils % (A) 3.7 %; HCT 49.3 % (39.6-50.0); HGB 16.8 g/dL (13.0-17.0); Immature Grans, Automated 0.6 %; Lymphocytes # (A) 1.59 X 10*3/uL (0.90-5.00); Lymphocytes % (A) 22.1 %; MCH 31.5 pg (27.0-32.0); MCHC 34.1 g/dL (32.0-37.0); MCV 92.3 fL (80.0-97.0); Monocytes # (A) 0.68 X 10*3/uL (0.20-1.00); Monocytes % (A) 9.4 %; NRBC Per 100 WBC 0 /100 WBCS (0.0-0.0); Neutrophils # (A) 4.56 X 10*3/uL (1.80-7.70); Neutrophils % (A) 63.2 %; Platelet Count 251 X 10*3/uL (140-440); RBC 5.34 X 10*6/uL (4.40-5.60); RDW 11.9 % (11.5-14.5); WBC 7.21 X 10*3/uL (4.50-10.00)
[2021-11-05 14:32] LABS: ALT 73 U/L (10-49); AST 57 U/L (14-35); African American GFR (CKD) 110.2 (60.0-200.0); Albumin 4.9 g/dL (3.8-4.9); Albumin/Globulin Ratio 1.85 (1.60-3.17); Alkaline Phosphatase 84 U/L (41-126); BUN/Creat Ratio 11.99 Ratio (12.00-20.00); Blood Urea Nitrogen 9.6 mg/dL (9.0-27.0); Calcium 9.7 mg/dL (8.7-10.3); Carbon Dioxide 23.8 mmol/L (20.0-27.5); Chloride 97 mmol/L (96-109); Chol/HDL Ratio 2.66 Ratio; Globulin 2.6 g/dL (1.6-3.3); Glucose 114 mg/dL (70-110); LDL Cholesterol,Calculated 77.1 mg/dL (0.0-131.0); Non-African American GFR(CKD) 95.1 (60.0-200.0); Sodium 136 mmol/L (135-145); Total Protein 7.5 g/dL (6.2-8.2); VLDL Calculation 14.74 mg/dL (5.00-40.00)
== END | disposition home or self-care (01) ==
LOC: LABWHC1 07:58
PROVIDERS: ATTEND Family Medicine
DX: E11.9 Type 2 diabetes mellitus without complications (principal)
CPT/HCPCS: 36415; 80053; 80061; 83036; 85025

== ENCOUNTER → 2022-02-13 | Outpatient (CLI) | payer BC ==
[2022-02-13 11:10] LABS: Basophils # (A) 0.06 X 10*3/uL (0.00-0.10); Eosinophils # (A) 0.25 X 10*3/uL (0.04-0.35); Eosinophils % (A) 4.4 %; HCT 47.9 % (39.6-50.0); HGB 16.5 g/dL (13.0-17.0); Immature Grans, Automated 0.3 %; Lymphocytes # (A) 1.51 X 10*3/uL (0.90-5.00); Lymphocytes % (A) 26.4 %; MCHC 34.4 g/dL (32.0-37.0); Mean Platelet Volume 11.3 fL (9.5-12.2); Monocytes # (A) 0.52 X 10*3/uL (0.20-1.00); Monocytes % (A) 9.1 %; NRBC Per 100 WBC 0 /100 WBCS (0.0-0.0); Neutrophils # (A) 3.37 X 10*3/uL (1.80-7.70); Neutrophils % (A) 58.8 %; Platelet Count 247 X 10*3/uL (140-440); RBC 5.15 X 10*6/uL (4.40-5.60); RDW 12.2 % (11.5-14.5); WBC 5.73 X 10*3/uL (4.50-10.00)
[2022-02-13 11:22] LABS: Albumin 4.6 g/dL (3.8-4.9); Albumin/Globulin Ratio 1.77 (1.60-3.17); Anion Gap 10.5 mmol/L (10.00-18.00); BUN/Creat Ratio 9.89 Ratio (12.00-20.00); Blood Urea Nitrogen 8.9 mg/dL (9.0-27.0); Calcium 9.7 mg/dL (8.7-10.3); Carbon Dioxide 27.5 mmol/L (20.0-27.5); Globulin 2.6 g/dL (1.6-3.3); HDL Cholesterol 55.5 mg/dL (40.00-60.00); Non-African American GFR(CKD) 90.6 (60.0-200.0); Potassium 4.4 mmol/L (3.5-5.5); Total Bilirubin 0.8 mg/dL (0.30-1.20); Total Protein 7.2 g/dL (6.2-8.2); Triglycerides 35.3 mg/dL (0.00-149.00)
[2022-02-13 11:35] LABS: Chol/HDL Ratio 2.36 Ratio; LDL Cholesterol,Direct Reflex 68.3 mg/dL (0.00-129.00)
== END | disposition home or self-care (01) ==
LOC: LABWHC1 07:13
PROVIDERS: ATTEND Family Medicine
DX: E11.9 Type 2 diabetes mellitus without complications (principal)
CPT/HCPCS: 36415; 80053; 80061; 83036; 83721; 85025

== ENCOUNTER → 2022-05-19 | Outpatient (CLI) | payer BC ==
[2022-05-19 10:46] LABS: Basophils % (A) 1.3 %; Eosinophils # (A) 0.37 X 10*3/uL (0.04-0.35); Eosinophils % (A) 4.7 %; HCT 49.7 % (39.6-50.0); HGB 16.9 g/dL (13.0-17.0); Immature Grans, Automated 0.4 %; Lymphocytes # (A) 1.71 X 10*3/uL (0.90-5.00); Lymphocytes % (A) 21.8 %; MCH 31.6 pg (27.0-32.0); MCV 92.9 fL (80.0-97.0); Mean Platelet Volume 10.7 fL (9.5-12.2); Monocytes # (A) 0.71 X 10*3/uL (0.20-1.00); NRBC Per 100 WBC 0 /100 WBCS (0.0-0.0); Neutrophils # (A) 4.94 X 10*3/uL (1.80-7.70); Neutrophils % (A) 62.8 %; Platelet Count 238 X 10*3/uL (140-440); RBC 5.35 X 10*6/uL (4.40-5.60); RDW 11.9 % (11.5-14.5); WBC 7.86 X 10*3/uL (4.50-10.00)
[2022-05-19 10:53] LABS: ALT 38 U/L (10-49); AST 33 U/L (14-35); African American GFR (CKD) 108.3 (60.0-200.0); Albumin 4.6 g/dL (3.8-4.9); Albumin/Globulin Ratio 1.88 (1.60-3.17); Alkaline Phosphatase 88 U/L (41-126); Blood Urea Nitrogen 8.9 mg/dL (9.0-27.0); Calcium 9.7 mg/dL (8.7-10.3); Carbon Dioxide 26.7 mmol/L (20.0-27.5); Chloride 95 mmol/L (96-109); Globulin 2.4 g/dL (1.6-3.3); Glucose 121 mg/dL (70-110); Non-African American GFR(CKD) 93.5 (60.0-200.0); Potassium 4.5 mmol/L (3.5-5.5); Sodium 132 mmol/L (135-145)
== END | disposition home or self-care (01) ==
LOC: LABWHC1 06:56
PROVIDERS: ATTEND Family Medicine
DX: E11.9 Type 2 diabetes mellitus without complications (principal)
CPT/HCPCS: 36415; 80053; 83036; 84443; 85025

== ENCOUNTER 2022-11-26 05:57 | Emergency (ER) | payer BC ==
[2022-11-26 06:06] VITALS: BP 175/93; PULSE 76; RESP 18; TEMP 97.7
--- NOTE | 2022-11-26 06:19 | ED ---
Upper Extremity HPI - General Chief Complaint: Extremity Injury, Upper Stated Complaint: Left Elbow pain Time Seen by Provider: 11/26/22 06:07 Source: patient, RN notes reviewed Mode of arrival: ambulatory Limitations: no limitations - History of Present Illness Initial Comments: 62-year-old male presents emergency Department with left elbow pain. Patient states started overnight woke him up early this morning. Patient states he is currently camping he is not sure if he hit his elbow on something states it is very painful with any touching or movement of his left elbow denies any fevers or chills she is a known diabetic he is currently on oral medications. Patient denies paresthesias no weakness. Denies fevers or chills - Related Data Home Medications Medication Instructions Recorded Confirmed Atorvastatin [Lipitor] 10 mg PO AC-BRKFST 05/11/18 05/24/18 metFORMIN HCL 500 mg PO AC-LUNCH 05/11/18 05/24/18 Losartan-Hctz 50-12.5 mg [Hyzaar 1 tab PO AC-SUPPER 05/24/18 05/24/18 50-12.5] Previous Rx's Medication Instructions Recorded Pantoprazole [Protonix] 40 mg PO AC-BID 30 Days #60 05/26/18 tablet. HYDROcodone/APAP 7.5-325MG [[place] 1 tab PO Q6HR PRN 3 Days #12 tab 11/26/22 7.5-325] Ibuprofen [Motrin] 600 mg PO Q8HR PRN #20 tab 11/26/22 clindamycin HCL 300 mg PO QID #40 cap 11/26/22 Allergies Allergy/AdvReac Type Severity Reaction Status Date / Time No Known Allergies Allergy Verified 11/26/22 06:06 Review of Systems ROS Statement: Those systems with pertinent positive or pertinent negative responses have been documented in the HPI. ROS Other: All systems not noted in ROS Statement are negative. Past Medical History Past Medical History: Diabetes Mellitus, Hyperlipidemia, Hypertension History of Any Multi-Drug Resistant Organisms: None Reported Past Surgical History: Heart Catheterization Additional Past Surgical History / Comment(s): Skin CA face Past Anesthesia/Blood Transfusion Reactions: No Reported Reaction Past Psychological History: No Psychological Hx Reported Smoking Status: Current every day smoker Past Alcohol Use History: Daily Past Drug Use History: None Reported - Past Family History Mother Family Medical History: No Reported History Additional Family Medical History / Comment(s): "either a stroke or heart attack" Father Family Medical History: Cancer Additional Family Medical History / Comment(s): colon cancer General Exam Limitations: no limitations General appearance: alert, in no apparent distress Head exam: Present: atraumatic, normocephalic, normal inspection Eye exam: Present: normal appearance, PERRL, EOMI. Absent: scleral icterus, conjunctival injection, periorbital swelling Respiratory exam: Present: normal lung sounds bilaterally. Absent: respiratory distress, wheezes, rales, rhonchi, stridor Cardiovascular Exam: Present: regular rate, normal rhythm, normal heart sounds. Absent: systolic murmur, diastolic murmur, rubs, gallop, clicks Extremities exam: Present: other (Left elbow there is notable swelling over the olecranon region there is mild erythema and warmth there is some discomfort with range of motion neurovascular intact there is no open lesions or sores there is a noted scab over the left elbow) Skin exam: Present: warm, dry, intact, normal color. Absent: rash Course Vital Signs 11/26/22 06:04 Temperature 97.7 F Pulse Rate 76 Respiratory 18 Rate Blood Pressure 175/93 O2 Sat by Pulse 94 L Oximetry Medical Decision Making - Medical Decision Making Was pt. sent in by a medical professional or institution ([facility], [facility], urgent care, hospital, or long term...) When possible be specific @ -No Did you speak to anyone other than the patient for history (EMS, parent, family, police, friend...)? What history was obtained from this source @ -No Did you review nursing and triage notes (agree or disagree)? Why? @ -I reviewed and agree with nursing and triage notes Were old charts reviewed (outside hosp., previous admission, EMS record, old EKG, old radiological studies, urgent care reports/EKG's, long term records)? Report findings @ -No old charts were reviewed Differential Diagnosis (chest pain, altered mental status, abdominal pain women, abdominal pain men, vaginal bleeding, weakness, fever, dyspnea, syncope, headache, dizziness, GI bleed, back pain, seizure, CVA, palpatations, mental health, musculoskeletal)? @ -BURSITIS, SEPTIC BURSITIS, ELBOW FRACTURE EKG interpreted by me (3pts min.). @ -None X-rays interpreted by me (1pt min.). @ -X-ray shows no gas formation, soft tissue swelling no acute fracture CT interpreted by me (1pt min.). @ -None done U/S interpreted by me (1pt. min.). @ -None done What testing was considered but not performed or refused? (CT, X-rays, U/S, lab s)? Why? @ -None What meds were considered but not given or refused? Why? @ -None Did you discuss the management of the patient with other professionals (professionals i.e. , PA, [facility], lab, RT, psych nurse, social insurance adviser, diesel engine i pipe fitter, teacher, amphibious operations officer, dependency case manager)? Give summary @ -No Was smoking cessation discussed for >3mins.? @ -No Was critical care preformed (if so, how long)? @ -No Were there social determinants of health that impacted care today? How? (Homelessness, low income, unemployed, alcoholism, drug addiction, transportation, low edu. Level, literacy, decrease access to med. care, half-way, rehab)? @ -No Was there de-escalation of care discussed even if they declined (Discuss DNR or withdrawal of care, Hospice)? DNR status @ -No What co-morbidities impacted this encounter? (DM, HTN, Smoking, COPD, CAD, Cancer, CVA, ARF, Chemo, Hep., AIDS, mental health diagnosis, sleep apnea, morbid obesity)? @ -Diabetes, hypertension Was patient admitted / discharged? Hospital course, mention meds given and route, prescriptions, significant lab abnormalities, going to OR and other p ertinent info. @ -Discharge patient has early signs of septic bursitis patient's symptoms are less than 12 hours old patient was started on clindamycin, anti-inflammatories, ice will follow-up with orthopedics may require drainage possible admission if worsening symptoms Undiagnosed new problem with uncertain prognosis? @ -No Drug Therapy requiring intensive monitoring for toxicity (Heparin, Nitro, Insulin, Cardizem)? @ -No Were any procedures done? @ -No Diagnosis/symptom? @ -Olecranon septic bursitis Acute, or Chronic, or Acute on Chronic? @ -Acute Uncomplicated (without systemic symptoms) or Complicated (systemic symptoms)? @ -Uncomplicated Side effects of treatment? @ -No Exacerbation, Progression, or Severe Exacerbation? @ -No Poses a threat to life or bodily function? How? (Chest pain, [place], [place], pneumonia, PE, COPD, DKA, ARF, appy, cholecystitis, CVA, Diverticulitis, Homicidal, Suicidal, threat to staff... and all critical care pts) @ -No Disposition Clinical Impression: Septic olecranon bursitis of left elbow Disposition: HOME SELF-CARE Condition: Stable Instructions (If sedation given, give patient instructions): Elbow Bursitis (ED) Additional Instructions: Please return to the Emergency Department if symptoms worsen or any other concerns. Prescriptions: clindamycin HCL 300 mg PO QID #40 cap Ibuprofen [Motrin] 600 mg PO Q8HR PRN #20 tab PRN Reason: Pain HYDROcodone/APAP 7.5-325MG [[place] 7.5-325] 1 tab PO Q6HR PRN 3 Days #12 tab PRN Reason: pain Is patient prescribed a controlled substance at d/c from ED?: No Referrals: Tony Mathis MD [Primary Care Provider] - 1-2 days Hang Desai DO [Doctor of Osteopathic Medicine] - 1-2 days Time of Disposition: 06:42
[2022-11-26] MEDS ORDERED: CLINDAMYCIN 150 MG CAP PO STA (06:35)
[2022-11-26] MEDS ORDERED: HYDROcodone/APAP 5-325MG 1 EACH TAB PO STA (06:35)
--- NOTE | 2022-11-26 07:15 | XR ---
EXAMINATION TYPE: XR elbow complete LT DATE OF EXAM: 11/26/2022 6:51 AM INDICATION: Patient age:Male; 62 years old; Reason for study: pain; PHH. COMPARISON: None TECHNIQUE: The left elbow was examined in AP, lateral, and oblique projections. FINDINGS: No acute fracture or dislocation. No radiopaque foreign body or osseous erosion. No eviden ce of joint effusion is present. Mild soft tissue swelling of the elbow most pronounced over the olec ranon. IMPRESSION: 1. No evidence of acute fracture. 2. Mild soft tissue swelling over the elbow most pronounced over the olecranon. This can be seen wit h bursitis.
== END 2022-11-26 07:11 | disposition home or self-care (01) ==
LOC: EC 05:57
DX: M70.22 Olecranon bursitis, left elbow (principal); I10 Essential (primary) hypertension; E11.9 Type 2 diabetes mellitus without complications; E78.5 Hyperlipidemia, unspecified; F17.200 Nicotine dependence, unspecified, uncomplicated; Z79.899 Other long term (current) drug therapy
CPT/HCPCS: 99283

== ENCOUNTER → 2022-12-02 | Outpatient (CLI) | payer BC ==
[2022-12-03 05:20] LABS: ALT 43 U/L (10-49); AST 35 U/L (14-35); Albumin 4.7 d/dL (3.8-4.9); Albumin/Globulin Ratio 1.96 Ratio (1.60-3.17); Alkaline Phosphatase 83 U/L (41-126); BUN/Creat Ratio 15.25 Ratio (12.00-20.00); Blood Urea Nitrogen 12.2 mg/dL (9.0-27.0); Calcium 9.9 mg/dL (8.7-10.3); Carbon Dioxide 25.1 mmol/L (21.6-31.8); Chloride 98 mmol/L (96-109); Globulin 2.4 d/dL (1.6-3.3); Glucose 139 mg/dL (70-110); Potassium 4.2 mmol/L (3.5-5.5); Sodium 135 mmol/L (135-145); T4, Free (Free Thyroxine) 1.09 ng/dL (0.80-1.80); Total Bilirubin 0.5 mg/dL (0.3-1.2); Total Protein 7.1 d/dL (6.2-8.2)
== END | disposition home or self-care (01) ==
LOC: LABWHC1 06:47
PROVIDERS: ATTEND Family Medicine
DX: E78.5 Hyperlipidemia, unspecified (principal)
CPT/HCPCS: 36415; 80053; 84439; 84443

== ENCOUNTER → 2023-02-23 | Outpatient (CLI) | payer BC ==
[2023-02-23 10:55] LABS: Basophils # (A) 0.07 X 10*3/uL (0.00-0.10); Basophils % (A) 1.1 %; Eosinophils # (A) 0.25 X 10*3/uL (0.04-0.35); Eosinophils % (A) 4.1 %; HCT 49.8 % (39.6-50.0); HGB 17.4 d/dL (13.0-17.0); Lymphocytes # (A) 1.58 X 10*3/uL (0.90-5.00); Lymphocytes % (A) 25.7 %; MCHC 34.9 d/dL (32.0-37.0); MCV 91.7 FL (80.0-97.0); Mean Platelet Volume 11.3 FL (9.5-12.2); Monocytes # (A) 0.47 X 10*3/uL (0.20-1.00); Monocytes % (A) 7.6 %; NRBC Per 100 WBC 0 X 10*3/uL (0.00-0.01); Neutrophils # (A) 3.75 X 10*3/uL (1.80-7.70); Platelet Count 216 X 10*3/uL (140-440); RBC 5.43 X 10*6/uL (4.40-5.60); WBC 6.15 X 10*3/uL (4.50-10.00)
[2023-02-23 11:22] LABS: ALT 36 U/L (10-49); AST 30 U/L (14-35); Albumin 4.8 d/dL (3.8-4.9); Albumin/Globulin Ratio 2.09 Ratio (1.60-3.17); Alkaline Phosphatase 79 U/L (41-126); BUN/Creat Ratio 12.89 Ratio (12.00-20.00); Blood Urea Nitrogen 11.6 mg/dL (9.0-27.0); Calcium 10.1 mg/dL (8.7-10.3); Carbon Dioxide 27.9 mmol/L (21.6-31.8); Chloride 98 mmol/L (96-109); Chol/HDL Ratio 2.92 Ratio; Globulin 2.3 d/dL (1.6-3.3); Glucose 154 mg/dL (70-110); LDL Cholesterol,Calculated 84.1 mg/dL (0.0-131.0); Potassium 4.3 mmol/L (3.5-5.5); Sodium 137 mmol/L (135-145); T4, Free (Free Thyroxine) 1.08 ng/dL (0.80-1.80); Total Bilirubin 0.6 mg/dL (0.3-1.2); Total Protein 7.1 d/dL (6.2-8.2); VLDL Calculation 12.56 mg/dL (5.00-40.00)
== END | disposition home or self-care (01) ==
LOC: LABWHC1 06:50
PROVIDERS: ATTEND Family Medicine
DX: E11.9 Type 2 diabetes mellitus without complications (principal)
CPT/HCPCS: 36415; 80053; 80061; 83036; 84439; 84443; 85025

== ENCOUNTER → 2023-08-10 | Outpatient (CLI) | payer MEDICARE ==
--- NOTE | 2023-08-10 15:10 | XR ---
EXAMINATION TYPE: XR chest 2V DATE OF EXAM: 08/10/2023 2:42 PM CLINICAL INDICATION:Male, 63 years old with history of J20.9 ACUTE BRONCHITIS, UNSPECIFIED; [facility] COMPARISON: Chest radiographs from 05/24/2018 TECHNIQUE: XR chest 2V Frontal and lateral views of the chest. FINDINGS: Lungs/Pleura: There is no evidence of pleural effusion, focal consolidation, or pneumothorax. Pulmonary vascularity: Unremarkable. Heart/mediastinum: Cardiomediastinal silhouette is unremarkable. Musculoskeletal: No acute osseous pathology. IMPRESSION: No acute cardiopulmonary disease/process.
== END | disposition home or self-care (01) ==
LOC: RADXRMAIN 14:31
PROVIDERS: ATTEND Family Medicine
DX: J20.9 Acute bronchitis, unspecified (principal)
CPT/HCPCS: 71046

== ENCOUNTER → 2023-08-20 | Outpatient (CLI) | payer MEDICARE ==
[2023-08-20 10:55] LABS: Basophils # (A) 0.09 X 10*3/uL (0.00-0.10); Basophils % (A) 1.1 %; Eosinophils # (A) 0.26 X 10*3/uL (0.04-0.35); Eosinophils % (A) 3.1 %; HCT 47.3 % (39.6-50.0); HGB 16.4 g/dL (13.0-17.0); Lymphocytes # (A) 2.03 X 10*3/uL (0.90-5.00); Lymphocytes % (A) 24.6 %; MCH 31.2 pg (27.0-32.0); MCHC 34.7 g/dL (32.0-37.0); MCV 90.1 FL (80.0-97.0); Mean Platelet Volume 10.5 FL (9.5-12.2); Monocytes # (A) 0.81 X 10*3/uL (0.20-1.00); Monocytes % (A) 9.8 %; NRBC Per 100 WBC 0 X 10*3/uL (0.00-0.01); Neutrophils # (A) 4.99 X 10*3/uL (1.80-7.70); Neutrophils % (A) 60.4 %; Platelet Count 251 X 10*3/uL (140-440); RBC 5.25 X 10*6/uL (4.40-5.60); RDW 11.6 % (11.5-14.5); WBC 8.26 X 10*3/uL (4.50-10.00)
[2023-08-20 11:18] LABS: ALT 43 U/L (10-49); AST 19 U/L (14-35); Albumin 4.5 g/dL (3.8-4.9); Albumin/Globulin Ratio 1.88 Ratio (1.60-3.17); Alkaline Phosphatase 86 U/L (41-126); BUN/Creat Ratio 14.88 Ratio (12.00-20.00); Blood Urea Nitrogen 11.9 mg/dL (9.0-27.0); Calcium 9.5 mg/dL (8.7-10.3); Carbon Dioxide 26.6 mmol/L (21.6-31.8); Chloride 97 mmol/L (96-109); Chol/HDL Ratio 3.45 Ratio; Globulin 2.4 g/dL (1.6-3.3); Glucose 210 mg/dL (70-110); LDL Cholesterol,Calculated 88.2 mg/dL (0.0-131.0); Potassium 4.3 mmol/L (3.5-5.5); Sodium 134 mmol/L (135-145); Total Bilirubin 0.7 mg/dL (0.3-1.2); Total Protein 6.9 g/dL (6.2-8.2)
[2023-08-20 11:19] LABS: Prostate Specific Antigen 0.98 ng/mL (0.000-4.500)
== END | disposition home or self-care (01) ==
LOC: LABWHC1 06:55
PROVIDERS: ATTEND Family Medicine
DX: Z12.5 Encounter for screening for malignant neoplasm of prostate (principal); E78.5 Hyperlipidemia, unspecified
CPT/HCPCS: 36415; 80053; 80061; 83036; 84153; 84443; 85025

== ENCOUNTER → 2023-11-18 | Outpatient (CLI) | payer MEDICARE ==
[2023-11-18 10:39] LABS: Basophils # (A) 0.06 X 10*3/uL (0.00-0.10); Basophils % (A) 1.2 %; Eosinophils # (A) 0.24 X 10*3/uL (0.04-0.35); Eosinophils % (A) 4.9 %; HCT 46.4 % (39.6-50.0); HGB 16.5 g/dL (13.0-17.0); Lymphocytes # (A) 1.61 X 10*3/uL (0.90-5.00); Lymphocytes % (A) 32.9 %; MCH 31.6 pg (27.0-32.0); MCHC 35.6 g/dL (32.0-37.0); MCV 88.9 FL (80.0-97.0); Mean Platelet Volume 10.9 FL (9.5-12.2); Monocytes # (A) 0.53 X 10*3/uL (0.20-1.00); Monocytes % (A) 10.8 %; NRBC Per 100 WBC 0 X 10*3/uL (0.00-0.01); Neutrophils # (A) 2.42 X 10*3/uL (1.80-7.70); Neutrophils % (A) 49.6 %; Platelet Count 232 X 10*3/uL (140-440); RBC 5.22 X 10*6/uL (4.40-5.60); RDW 11.9 % (11.5-14.5); WBC 4.89 X 10*3/uL (4.50-10.00)
[2023-11-18 10:47] LABS: ALT 62 U/L (10-49); AST 45 U/L (14-35); Albumin 4.9 g/dL (3.8-4.9); Albumin/Globulin Ratio 2.04 Ratio (1.60-3.17); Alkaline Phosphatase 90 U/L (41-126); BUN/Creat Ratio 11.25 Ratio (12.00-20.00); Calcium 10.1 mg/dL (8.7-10.3); Carbon Dioxide 23.9 mmol/L (21.6-31.8); Chloride 97 mmol/L (96-109); Chol/HDL Ratio 2.88 Ratio; Globulin 2.4 g/dL (1.6-3.3); Glucose 146 mg/dL (70-110); LDL Cholesterol,Calculated 79.3 mg/dL (0.0-131.0); Potassium 4.6 mmol/L (3.5-5.5); Sodium 134 mmol/L (135-145); Total Bilirubin 0.6 mg/dL (0.3-1.2); Total Protein 7.3 g/dL (6.2-8.2); VLDL Calculation 12.12 mg/dL (5.00-40.00)
== END | disposition home or self-care (01) ==
LOC: LABWHC1 06:57
PROVIDERS: ATTEND Nurse Practitioner Family
DX: Z12.5 Encounter for screening for malignant neoplasm of prostate (principal); E78.5 Hyperlipidemia, unspecified
CPT/HCPCS: 36415; 80053; 80061; 82306; 83036; 84153; 84443; 85025

== ENCOUNTER → 2023-12-09 | Outpatient (CLI) | payer MEDICARE ==
[2023-12-09 13:36] LABS: African American GFR (CKD) >90 (>60 ml/min/1.73 sqM); Blood Urea Nitrogen 23 mg/dL (9-20); Non-African American GFR(CKD) 86 (>60 ml/min/1.73 sqM)
--- NOTE | 2023-12-09 14:48 | CT ---
EXAMINATION TYPE: CT brain wo/w con DATE OF EXAM: 12/09/2023 COMPARISON: CT brain 01/01/2010 HISTORY: 63-year-old male R51.9, unspecified headache, dizziness TECHNIQUE: Examination was done in axial plane without intravenous contrast. Coronal and sagittal r econstructions performed. CT DLP: 2232 mGycm Automated exposure control for dose reduction was used. FINDINGS: There is no evidence of acute intracranial hemorrhage, acute ischemic changes, mass, mass-effect, or extra-axial fluid collection. There is no effacement of cerebral sulci or basal subarachnoid cister ns. There is no hydrocephalus. There is no midline shift. Funes-white matter distinction is preserv ed. Prominent atherosclerotic calcifications within the carotid siphons and also within the proximal V4 s egments of the bilateral vertebral arteries. The enhancing intracranial lesion. Dural venous sinuses are patent. Moderate mucosal thickening. Mastoid air cells well pneumatized. The globes are intact. IMPRESSION: 1. No acute intracranial abnormality seen. Prominent atherosclerotic changes within the bilateral car otid siphons and also within the proximal V4 segment of the vertebral arteries. Underlying significan t stenoses difficult to exclude. If further assessment is desired, MR angiography versus thin cut CTA can be considered. 2. No enhancing intracranial lesions. 3. Moderate chronic ethmoid sinus disease.
== END | disposition home or self-care (01) ==
LOC: RADCTMAIN 12:41
PROVIDERS: ATTEND Family Medicine
DX: J32.2 Chronic ethmoidal sinusitis (principal)
CPT/HCPCS: 82565; 84520; 70470; 36415; Q9967

== ENCOUNTER → 2023-12-18 | Outpatient (CLI) | payer MEDICARE ==
--- NOTE | 2023-12-18 17:47 | CT ---
EXAMINATION TYPE: CT angio head neck CT DLP: 328.9 mGycm, Automated exposure control for dose reduction was used. DATE OF EXAM: 12/18/2023 9:59 AM COMPARISON: CT brain 12/09/2023. CLINICAL INDICATION:Male, 63 years old with history of I65.29 STENOSIS; PHH, Headaches x2 weeks. TECHNIQUE: Axially acquired helical CT angiogram of the head and neck was obtained with contrast util izing 75 cc of Isovue-370 administered intravenously. Axial images are supplemented with 3D reconstru ctions which were post-processed at an independent workstation. NASCET criteria used. FINDINGS: CTA HEAD: No evidence of acute intracranial hemorrhage, mass effect, or midline shift. The ventricles, sulci, a nd cisterns are unremarkable. The visualized portions of the internal carotid arteries, middle cerebral arteries, anterior cerebral arteries, and posterior cerebral arteries are patent. The basilar and vertebral arteries are patent. CTA NECK: Right Carotid System: The common carotid artery and external carotid artery are patent. Approximately 25% stenosis of the o rigin of the right common carotid artery secondary to calcified and noncalcified plaque. Approximatel y 50% stenosis in the proximal internal carotid artery secondary to calcified plaque. Atherosclerotic plaque identified within the carotid bulb. No significant stenosis involving the origin of the exter nal carotid artery. Moderate to severe stenosis of the cavernous portion of the internal carotid sharon ry. The remaining portions of the internal carotid artery demonstrate normal size without significant narrowing. Left Carotid System: The common carotid artery and external carotid artery are patent. There is approximately 50% stenosis of the origin of the left common carotid artery secondary to calcified and noncalcified plaque. Appr oximately 25% stenosis of the proximal ICA secondary to calcified plaque. Mild stenosis of the origin of the ECA secondary to calcified plaque. Moderate to severe stenosis of the cavernous portion of th e internal carotid artery. The remaining portions of the internal carotid artery demonstrate normal s ize without significant narrowing. Vertebral arteries are patent. There is high-grade stenosis at the origin of the bilateral vertebral arteries secondary to calcified plaque. Left vertebral artery is dominant. There is approximately 50% stenosis of the V4 segment of the left vertebral artery secondary to calcified plaque. There is a bovine aortic arch. The origins of the great vessels are patent. Enhancing 9 mm lesion within the superior portion of the left parotid gland (series 4, image 107). Mi ldly prominent mediastinal lymph nodes with the pretracheal lymph node measuring 9 mm short axis (ser ies 4, image 13) and a right paratracheal lymph node measuring 9 mm short axis (series 4, image 1). A dditional enlarged right paratracheal lymph node measuring 9 mm short axis (series 4, image 23). Mild centrilobular emphysematous changes within the visualized bilateral upper lobes. Mild bilateral ethmoid sinus and left inferior maxillary sinus mucosal thickening. Mild multilevel ce rvical degenerative disc disease. IMPRESSION: 1. No evidence of dissection of the cervical internal carotid arteries or vertebral arteries. 2. Moderate to severe stenosis of the cavernous portions of the bilateral internal carotid arteries. Approximately 25% stenosis at the proximal left ICA. Approximately 50% stenosis of the proximal righ t ICA. 3. Approximately 50% stenosis of the origin of the left common carotid artery and 25% stenosis at th e origin of the right common carotid artery secondary to calcified and noncalcified plaque. 4. High-grade stenosis of the origin of bilateral vertebral arteries with approximately 50% stenosis of the V4 segment of the left vertebral artery secondary to calcified plaque. 5. No evidence of intracranial high-grade stenosis or intracranial aneurysm. 6. Enhancing left parotid gland 9 mm lesion. Further evaluation with ultrasound is recommended. 7. Mildly prominent mediastinal lymph nodes measuring up to 9 mm short axis. May be reactive versus other etiologies. 8. Mild COPD changes.
== END | disposition home or self-care (01) ==
LOC: RADCTMAIN 08:48
PROVIDERS: ATTEND Family Medicine
DX: I65.23 Occlusion and stenosis of bilateral carotid arteries (principal); J44.9 Chronic obstructive pulmonary disease, unspecified; R51.9 Headache, unspecified
CPT/HCPCS: 70496; 70498; Q9967

== ENCOUNTER → 2023-12-31 | Outpatient (CLI) | payer MEDICARE ==
--- NOTE | 2024-01-01 00:06 | US ---
EXAMINATION TYPE: US thyroid st tissue head/neck DATE OF EXAM: 12/31/2023 COMPARISON: CT head neck CLINICAL INDICATION: Male, 63 years old with history of R22.1 LOCALIZED SWELLING,MASS ANJD LUMP, NECK ; Left parotid 9mm mass found on CT Scanned left parotid at area of concern and noted two adjacent probable lymph nodes. Largest measurin g 0.9 x 0.4 x 0.5 cm IMPRESSION: 1. Left parotid lymph node not enlarged by measurement criteria.
== END | disposition home or self-care (01) ==
LOC: RADUSWWP 07:00
PROVIDERS: ATTEND Family Medicine
DX: R22.1 Localized swelling, mass and lump, neck (principal)
CPT/HCPCS: 76536